=== PATIENT | male | born 1955 | race Caucasian/White ===

== ENCOUNTER 2016-06-23 13:11 | Emergency (ER) | payer OTHER ==
[2016-06-23 13:16] VITALS: BP 126/76; PULSE 89; RESP 18; TEMP 98.4
--- NOTE | 2016-06-23 13:28 | ED ---
General Adult HPI - General Chief complaint: Dental/Oral Stated complaint: Dental Pain Time Seen by Provider: 06/23/16 13:17 Source: patient, RN notes reviewed Mode of arrival: ambulatory Limitations: no limitations - History of Present Illness Initial comments: Patient 61-year-old male who presents emergency room today with a chief complaint of increased dental pain. Patient does admit to pain and tenderness over the left lower jawline along with the right upper over the last day. Patient denies any other complaints associated symptoms. Denies any drainage or discharge. Does admit to depression tooth of tooth #19. Patient denies any recent fever, chills, shortness of breath, chest pain, back pain, abdominal pain , nausea or vomiting, numbness or tingling, dysuria or hematuria, constipation or diarrhea, headaches or visual changes, or any other complaints. - Related Data Home Medications Medication Instructions Recorded Confirmed Lisinopril [Prinivil] 20 mg PO DAILY 06/23/16 06/23/16 Previous Rx's Medication Instructions Recorded Hydrocodone/Acetaminophen [[place] 1 each PO Q6HR PRN #15 tab 06/23/16 5-325] Ibuprofen [Motrin] 600 mg PO Q6HR PRN #40 day 06/23/16 Penicillin V Potassium [Pen Vee K] 500 mg PO QID 10 Days 06/23/16 Allergies Allergy/AdvReac Type Severity Reaction Status Date / Time No Known Allergies Allergy Verified 06/23/16 13:15 Review of Systems ROS Statement: Those systems with pertinent positive or pertinent negative responses have been documented in the HPI. ROS Other: All systems not noted in ROS Statement are negative. Past Medical History Past Medical History: Hypertension History of Any Multi-Drug Resistant Organisms: None Reported Past Surgical History: Cholecystectomy Additional Past Surgical History / Comment(s): hernia repair, umbilical and inguinal Past Psychological History: No Psychological Hx Reported Smoking Status: Current every day smoker Past Alcohol Use History: None Reported Past Drug Use History: None Reported General Exam - General Exam Comments Initial Comments: General: The patient is awake and alert, in no distress, and does not appear acutely ill. Eye: Pupils are equal, round and reactive to light, extra-ocular movements are intact. No nystagmus. There is normal conjunctiva bilaterally. No signs of icterus. Ears, nose, mouth and throat: There are moist mucous membranes and no oral lesions. TMs clear bilaterally. No missing teeth. Tender in the gumline of tooth #19. There is a old fracture in this area. Neck: The neck is supple, there is no tenderness or JVD. Cardiovascular: There is a regular rate and rhythm. No murmur, rub or gallop is appreciated. Respiratory: Lungs are clear to auscultation, respirations are non-labored, breath sounds are equal. No wheezes, stridor, rales, or rhonchi. Musculoskeletal: Normal ROM, no tenderness. Strength 5/5. Sensation intact. Pulses equal bilaterally 2+. Neurological: A&O x 3. CN II-XII intact, There are no obvious motor or sensory deficits. Coordination appears grossly intact. Speech is normal. Skin: Skin is warm and dry and no rashes or lesions are noted. Psychiatric: Cooperative, appropriate mood & affect, normal judgment. Limitations: no limitations Course Vital Signs 06/23/16 13:13 Temperature 98.4 F Pulse Rate 89 Respiratory 18 Rate Blood Pressure 126/76 O2 Sat by Pulse 98 Oximetry Medical Decision Making - Medical Decision Making She'll be started on antibiotics given short prescription of pain medication for symptoms advised follow-up the oral surgeon. Disposition Clinical Impression: Dental abscess Disposition: HOME SELF-CARE Condition: Good Instructions: Dental Abscess (ED) Additional Instructions: Please follow-up the oral surgeon family doctor as discussed. Please use medications as prescribed. Please be aware that Gul[place] may make you drowsy. Please return to emergency room for any other concerns. Prescriptions: Hydrocodone/Acetaminophen [G[place] 5-325] 1 each PO Q6HR PRN #15 tab PRN Reason: Pain Ibuprofen [Motrin] 600 mg PO Q6HR PRN #40 day PRN Reason: Pain Penicillin V Potassium [Pen Vee K] 500 mg PO QID 10 Days Time of Disposition: 13:27
== END 2016-06-23 13:46 | disposition home or self-care (01) ==
LOC: EC 13:11
DX: K04.7 Periapical abscess without sinus (principal); I10 Essential (primary) hypertension; F17.200 Nicotine dependence, unspecified, uncomplicated; Z79.899 Other long term (current) drug therapy
CPT/HCPCS: 99282

== ENCOUNTER → 2016-07-02 | Outpatient (CLI) | payer OTHER ==
[2016-07-02 11:08] LABS: Anion Gap 7 mmol/L; Blood Urea Nitrogen 11 mg/dL (9-20); Carbon Dioxide 26 mmol/L (22-30); Chloride 107 mmol/L (98-107); Glucose 87 mg/dL (74-99); Non-African American GFR(MDRD) >60 (>60 ml/min/1.73 sqM); Sodium 140 mmol/L (137-145)
[2016-07-02 11:32] LABS: Hemoglobin A1C 5.8 % (4.2-6.1)
== END ==
LOC: LABWHC1 09:00
PROVIDERS: ATTEND Internal Medicine
DX: E87.8 Other disorders of electrolyte and fluid balance, not elsewhere classified (principal); R73.9 Hyperglycemia, unspecified
CPT/HCPCS: 36415; 80048; 83036

== ENCOUNTER 2016-07-23 09:59 | Emergency (ER) | payer OTHER ==
[2016-07-23 10:15] VITALS: RESP 18
--- NOTE | 2016-07-23 10:48 | ED ---
General Adult HPI - General Chief complaint: Extremity Injury, Lower Stated complaint: LEFT FOOT INJURY, RT SIDE PAIN Time Seen by Provider: 07/23/16 10:28 Source: patient, RN notes reviewed Mode of arrival: wheelchair Limitations: physical limitation - History of Present Illness Initial comments: Patient is a 61-year-old male presents to the emergency room for evaluation of left great toe pain. Patient states on Saturday he tripped going down the steps and stubbed his left great toe. Patient states he has been having worsening pain ever since. Patient denies taking anything for pain. Patient denies applying ice over the area. Patient states having 8 out of 10 constant pain especially while walking. Patient denies any other injuries during incident. Patient also states that a few days ago he noticed he's been having worsening right lower quadrant pain. Patient states he had a hernia repair about 6 years ago and it's in the same spot. Patient states she's afraid he ripped the hernia. Patient denies fevers or chills. Patient denies nausea or vomiting. Patient states the pain is worse with movement. Patient denies chest pain or shortness of breath. Patient denies pain or burning during urination, trouble urinating or blood in urine. - Related Data Home Medications Medication Instructions Recorded Confirmed Lisinopril [Prinivil] 20 mg PO DAILY 06/23/16 07/23/16 Previous Rx's Medication Instructions Recorded HYDROcodone/APAP 5-325MG [Ewing 1 tab PO Q6HR PRN #12 tab 07/23/16 5-325] Allergies Allergy/AdvReac Type Severity Reaction Status Date / Time No Known Allergies Allergy Verified 07/23/16 10:27 Review of Systems ROS Statement: Those systems with pertinent positive or pertinent negative responses have been documented in the HPI. ROS Other: All systems not noted in ROS Statement are negative. Past Medical History Past Medical History: Hypertension History of Any Multi-Drug Resistant Organisms: None Reported Past Surgical History: Cholecystectomy Additional Past Surgical History / Comment(s): hernia repair, umbilical and inguinal Past Psychological History: No Psychological Hx Reported Smoking Status: Current every day smoker Past Alcohol Use History: None Reported Past Drug Use History: None Reported General Exam - General Exam Comments Initial Comments: Sitting in exam room in no acute distress. Limitations: physical limitation General appearance: alert, in no apparent distress Head exam: Present: atraumatic, normocephalic, normal inspection Eye exam: Present: normal appearance ENT exam: Present: normal exam Neck exam: Present: normal inspection Respiratory exam: Present: normal lung sounds bilaterally. Absent: respiratory distress Cardiovascular Exam: Present: regular rate, normal rhythm, normal heart sounds GI/Abdominal exam: Present: soft, normal bowel sounds. Absent: distended, tenderness, guarding, rebound, rigid exam: Present: normal inspection, other (No inguinal hernias noted.). Absent : testicular tenderness Left Foot/Toe exam: Present: tenderness (Tenderness on palpating over the proximal phalanx. Erythema and swelling of the great toe). Absent: deformity Neurovascular tendon exam: Present: no vascular compromise. Absent: pulse deficit (2+ dorsal pedal and posterior tibial pulses), abnormal cap refill ( Capillary refill less than 2 seconds) Back exam: Present: normal inspection Neurological exam: Present: alert, oriented X3, CN II-XII intact Psychiatric exam: Present: normal affect, normal mood Skin exam: Present: warm, dry, intact, normal color. Absent: rash Course Vital Signs 07/23/16 07/23/16 07/23/16 10:12 11:21 12:37 Temperature 98.1 F 98.3 F Pulse Rate 56 L 63 65 Respiratory 18 18 18 Rate Blood Pressure 111/73 109/63 110/62 O2 Sat by Pulse 96 95 97 Oximetry Medical Decision Making - Medical Decision Making Patient is a 61-year-old male presents emergency room for evaluation of left foot pain and abdominal pain. Left foot x-ray: Fracture of the proximal phalanx left great toe. Patient placed in a postop shoe and given crutches and advised to follow-up with radiation protection specialist. Regarding patient's abdominal pain. No hernias noted. No masses or contusions noted when patient bears down. No inguinal hernias noted. Advised patient to follow-up with his surgeon or primary care provider for reevaluation. Patient's vitals are stable. Patient is afebrile. Patient denies nausea or vomiting. Patient states he understands everything that was discussed with him. Return parameters discussed. Case discussed with Dr. Lewis - Radiology Data Radiology results: report reviewed, image reviewed Disposition Clinical Impression: Fracture of left great toe Disposition: HOME SELF-CARE Condition: Good Instructions: Foot Fracture in Adults (ED) Additional Instructions: Rest, elevate and ice on and off for 10-15 minutes for the next 24-48 hours. Take improvement as needed for pain. Take Ewing as needed for severe pain. Please follow-up with radiation protection specialist in 24-48 hours. If new symptoms develop or symptoms worsen, please return to the ER. Prescriptions: HYDROcodone/APAP 5-325MG [Ewing 5-325] 1 tab PO Q6HR PRN #12 tab PRN Reason: Pain Referrals: Estevan Marquez MD [STAFF PHYSICIAN] - 1-2 days Time of Disposition: 12:22
--- NOTE | 2016-07-23 11:19 | XR ---
EXAMINATION TYPE: XR foot complete LT DATE OF EXAM: 07/23/2016 11:09 AM CLINICAL HISTORY: pain TECHNIQUE: Frontal, lateral and oblique images of the left foot are obtained. COMPARISON: None. FINDINGS: Minimally displaced fracture involving the proximal phalanx of the left great toe extending from the neck into the shaft. Displacement is approximately 1 mm. No definite intra-articular extens ion appreciated at this time. Mild soft tissue swelling identified. No additional fracture seen. IMPRESSION: Fracture of the proximal phalanx left great toe. ICD 10 closed FRACTURE, INITIAL EVALUATION
[2016-07-23 12:39] VITALS: BP 110/62; PULSE 65; TEMP 98.3
== END 2016-07-23 12:30 | disposition home or self-care (01) ==
LOC: EC 09:59
DX: S92.412A Displaced fracture of proximal phalanx of left great toe, initial encounter for closed fracture (principal); W18.49XA Other slipping, tripping and stumbling without falling, initial encounter; R10.31 Right lower quadrant pain; I10 Essential (primary) hypertension; F17.200 Nicotine dependence, unspecified, uncomplicated; Z79.899 Other long term (current) drug therapy
CPT/HCPCS: 99283

== ENCOUNTER → 2016-07-24 | Outpatient (CLI) | payer OTHER ==
--- NOTE | 2016-07-24 11:58 | CT ---
EXAMINATION TYPE: CT abdomen pelvis w con DATE OF EXAM: 07/24/2016 11:41 AM COMPARISON: NONE HISTORY: Patient having right lower quadrant pain-appendix protocol CT DLP: 2588.4 mGycm, Automated Exposure Control for Dose Reduction was Utilized. CONTRAST: CT scan of the abdomen and pelvis is performed with oral and with IV Contrast, patient injected with 100 mL of Omnipaque 300. FINDINGS: LUNG BASES: Motion artifact degradation is seen. Lung bases are grossly clear. LIVER/GB: Cholecystectomy clips are noted. Liver is diffusely hypodense suggesting fatty infiltration . PANCREAS: No significant abnormality is seen. SPLEEN: No significant abnormality is seen. ADRENALS: No significant abnormality is seen. KIDNEYS: Some prominence of retroperitoneal fat is noted. BOWEL: Oral contrast does not reach colonic level making evaluation suboptimal. There is no suspiciou s small or large bowel dilatation seen. There is 1.8 cm diverticulum along the second portion of duod enum on axial image 35. Appendix is within normal limits from the cecum seen best on coronal image 47 . Some diverticula are seen in the sigmoid colon. There is no CT evidence for acute diverticulitis. PROSTATE/SEMINAL VESICLES: Some central zone calcifications are seen in normal size prostate gland. LYMPH NODES: No greater than 1cm abdominal or pelvic lymph nodes are appreciated. There is prominent but subcentimeter perihepatic and anterior caval lymph node on axial image 28 noted. OSSEOUS STRUCTURES: There is multilevel spurring and disc space narrowing with endplate sclerosis in the lumbar spine. OTHER: There is moderate sized fat-containing right inguinal hernia. There is mild to moderate mixed plaque in the distal abdominal aorta extending into pelvic branch ves sels IMPRESSION: No CT evidence for acute appendicitis. No significant acute finding is seen to account fo r patient's clinical symptoms.
== END | disposition home or self-care (01) ==
LOC: RADCTMAIN 10:19
PROVIDERS: ATTEND Internal Medicine
DX: K35.80 Unspecified acute appendicitis (principal)
CPT/HCPCS: 74177; Q9967

== ENCOUNTER 2017-01-04 15:55 | Emergency (ER) | payer OTHER ==
[2017-01-04] MEDS ORDERED: ONDANSETRON 4 MG/2 ML VIAL IVP STA ×2 (16:08→17:22)
[2017-01-04] MEDS ORDERED: ACETAMINOPHEN IV (For NPO) 1,000 MG in EMPTY BAG 1 BAG IVPB STA (16:08)
[2017-01-04] MEDS ORDERED: RX INFO: IV CONTRAST WAS GIVEN 1 EACH MISC MISCELLANE PRN (16:08)
[2017-01-04] MEDS ORDERED: HYDROmorphone 1 MG/ML 1 ML SYRINGE IVP STA (16:08)
[2017-01-04] MEDS ORDERED: SODIUM CHLORIDE 0.9% 1,000 ML IV STA ×2 (16:08)
--- NOTE | 2017-01-04 16:12 | ED ---
General Adult HPI - General Chief complaint: Abdominal Pain Stated complaint: lower abdominal pain Time Seen by Provider: 01/04/17 16:00 Source: patient, RN notes reviewed Mode of arrival: ambulatory Limitations: no limitations - History of Present Illness Initial comments: Patient 61-year-old male who presents emergency room today with chief complaint of abdominal pain over the last 3 days. He doesn't appear in the lower abdomen. Since he has had 2 previous of hernia repairs. Patient does admit to diarrhea. This feeling nauseated. Currently rates pain 8/10. Denies any other complaints or symptoms. Patient denies any recent fever, chills, shortness of breath, chest pain, back pain, vomiting, numbness or tingling, dysuria or hematuria, constipation, headaches or visual changes, or any other complaints. - Related Data Home Medications Medication Instructions Recorded Confirmed Lisinopril [Prinivil] 20 mg PO DAILY 06/23/16 01/04/17 Albuterol Inhaler [Ventolin Hfa 2 puff INHALATION RT-QID PRN 01/04/17 01/04/17 Inhaler] Albuterol Nebulized [Ventolin 2.5 mg INHALATION RT-QID PRN 01/04/17 01/04/17 Nebulized] Ibuprofen [Motrin] 1,200 mg PO QID PRN 01/04/17 01/04/17 Previous Rx's Medication Instructions Recorded Ciprofloxacin HCl [Cipro] 500 mg PO Q12HR #20 day 01/04/17 Hydrocodone/Acetaminophen [[place] 1 each PO Q6HR PRN #15 tab 01/04/17 5-325] Ondansetron Odt [Zofran ODT] 4 mg PO Q8HR PRN #20 tab 01/04/17 metroNIDAZOLE [Flagyl] 500 mg PO TID 7 Days 01/04/17 Allergies Allergy/AdvReac Type Severity Reaction Status Date / Time No Known Allergies Allergy Verified 01/04/17 16:36 Review of Systems ROS Statement: Those systems with pertinent positive or pertinent negative responses have been documented in the HPI. ROS Other: All systems not noted in ROS Statement are negative. Past Medical History Past Medical History: Hypertension History of Any Multi-Drug Resistant Organisms: None Reported Past Surgical History: Cholecystectomy Additional Past Surgical History / Comment(s): hernia repair, umbilical and inguinal Past Psychological History: No Psychological Hx Reported Smoking Status: Current every day smoker Past Alcohol Use History: None Reported Past Drug Use History: None Reported General Exam - General Exam Comments Initial Comments: General: The patient is awake and alert, in no distress, and does not appear acutely ill. Eye: Pupils are equal, round and reactive to light, extra-ocular movements are intact. No nystagmus. There is normal conjunctiva bilaterally. No signs of icterus. Ears, nose, mouth and throat: There are moist mucous membranes and no oral lesions. Neck: The neck is supple, there is no tenderness or JVD. Cardiovascular: There is a regular rate and rhythm. No murmur, rub or gallop is appreciated. Respiratory: Lungs are clear to auscultation, respirations are non-labored, breath sounds are equal. No wheezes, stridor, rales, or rhonchi. Gastrointestinal: Normal appearance abdomen. Normal bowel sounds. Patient does have tenderness left lower quadrant. No rebound tenderness. Guarding. No CVA tenderness. Musculoskeletal: Normal ROM, no tenderness. Strength 5/5. Sensation intact. Pulses equal bilaterally 2+. Neurological: A&O x 3. CN II-XII intact, There are no obvious motor or sensory deficits. Coordination appears grossly intact. Speech is normal. Skin: Skin is warm and dry and no rashes or lesions are noted. Psychiatric: Cooperative, appropriate mood & affect, normal judgment. Limitations: no limitations Course Vital Signs 01/04/17 01/04/17 15:57 17:24 Temperature 100.9 F H 98.1 F Pulse Rate 100 88 Respiratory 20 18 Rate Blood Pressure 157/104 145/86 O2 Sat by Pulse 99 96 Oximetry Medical Decision Making - Medical Decision Making Patient's CT of the abdomen and pelvis reviewed and does show a fat containing right hernia. No other acute abnormalities appreciated. Patient did have tenderness greatest in left lower quadrant. Patient was complaining about epigastric pain when he got back from CT. At this time is been examined again has no pain. Did not want have GI cocktail. This pain is improved here in the emergency room. His labs been reviewed. Did have low-grade temperature on the 100.9. Case discussed in detail with attending physician Dr. Lewis. patient will be discharged home On Cipro and Flagyl to Cover for a Colitis Versus Diverticulitis. Also. Patient Following up with Family Doctor over the Next 2 Days. Advised Return If Symptoms Increase Worsen or for Any Other Concerns. Patient States Understanding and Is in Agreement.. - Lab Data Result diagrams: 01/04/17 16:15 01/04/17 16:15 Lab Results 01/04/17 01/04/17 01/04/17 Range/Units 16:15 16:15 16:15 WBC 11.4 H (3.8-10.6) k/uL RBC 5.92 H (4.30-5.90) m/uL Hgb 16.9 (13.0-17.5) gm/dL Hct 50.6 (39.0-53.0) % MCV 85.5 (80.0-100.0) fL MCH 28.5 (25.0-35.0) pg MCHC 33.4 (31.0-37.0) g/dL RDW 14.5 (11.5-15.5) % Plt Count 240 (150-450) k/uL Neutrophils % 68 % Lymphocytes % 21 % Monocytes % 6 % Eosinophils % 2 % Basophils % 0 % Neutrophils # 7.7 (1.3-7.7) k/uL Lymphocytes # 2.4 (1.0-4.8) k/uL Monocytes # 0.7 (0-1.0) k/uL Eosinophils # 0.2 (0-0.7) k/uL Basophils # 0.1 (0-0.2) k/uL PT (9.0-12.0) sec INR (<1.2) APTT (22.0-30.0) sec Sodium 136 L (137-145) mmol/L Potassium 4.6 (3.5-5.1) mmol/L Chloride 107 (98-107) mmol/L Carbon Dioxide 20 L (22-30) mmol/L Anion Gap 9 mmol/L BUN 12 (9-20) mg/dL Creatinine 0.80 (0.66-1.25) mg/dL Est GFR (MDRD) Af Amer >60 (>60 ml/min/1.73 sqM) Est GFR (MDRD) Non-Af >60 (>60 ml/min/1.73 sqM) Glucose 104 H (74-99) mg/dL Plasma Lactic Acid Benito 1.0 (0.7-2.0) mmol/L Calcium 9.1 (8.4-10.2) mg/dL Total Bilirubin 0.7 (0.2-1.3) mg/dL AST 19 (17-59) U/L ALT 35 (21-72) U/L Alkaline Phosphatase 73 (38-126) U/L Total Protein 6.9 (6.3-8.2) g/dL Albumin 4.1 (3.5-5.0) g/dL Amylase 44 (30-110) U/L Urine Color Urine Appearance (Clear) Urine pH (5.0-8.0) Ur Specific [place] (1.001-1.035) Urine Protein (Negative) Urine Glucose (UA) (Negative) Urine Ketones (Negative) Urine Blood (Negative) Urine Nitrite (Negative) Urine Bilirubin (Negative) Urine Urobilinogen (<2.0) mg/dL Ur Leukocyte Esterase (Negative) 01/04/17 01/04/17 Range/Units 16:15 17:50 WBC (3.8-10.6) k/uL RBC (4.30-5.90) m/uL Hgb (13.0-17.5) gm/dL Hct (39.0-53.0) % MCV (80.0-100.0) fL MCH (25.0-35.0) pg MCHC (31.0-37.0) g/dL RDW (11.5-15.5) % Plt Count (150-450) k/uL Neutrophils % % Lymphocytes % % Monocytes % % Eosinophils % % Basophils % % Neutrophils # (1.3-7.7) k/uL Lymphocytes # (1.0-4.8) k/uL Monocytes # (0-1.0) k/uL Eosinophils # (0-0.7) k/uL Basophils # (0-0.2) k/uL PT 10.2 (9.0-12.0) sec INR 1.0 (<1.2) APTT 24.1 (22.0-30.0) sec Sodium (137-145) mmol/L Potassium (3.5-5.1) mmol/L Chloride (98-107) mmol/L Carbon Dioxide (22-30) mmol/L Anion Gap mmol/L BUN (9-20) mg/dL Creatinine (0.66-1.25) mg/dL Est GFR (MDRD) Af Amer (>60 ml/min/1.73 sqM) Est GFR (MDRD) Non-Af (>60 ml/min/1.73 sqM) Glucose (74-99) mg/dL Plasma Lactic Acid Benito (0.7-2.0) mmol/L Calcium (8.4-10.2) mg/dL Total Bilirubin (0.2-1.3) mg/dL AST (17-59) U/L ALT (21-72) U/L Alkaline Phosphatase (38-126) U/L Total Protein (6.3-8.2) g/dL Albumin (3.5-5.0) g/dL Amylase (30-110) U/L Urine Color Yellow Urine Appearance Clear (Clear) Urine pH 6.0 (5.0-8.0) Ur Specific [place] >1.050 H (1.001-1.035) Urine Protein Trace H (Negative) Urine Glucose (UA) Negative (Negative) Urine Ketones Negative (Negative) Urine Blood Negative (Negative) Urine Nitrite Negative (Negative) Urine Bilirubin Negative (Negative) Urine Urobilinogen <2.0 (<2.0) mg/dL Ur Leukocyte Esterase Negative (Negative) Disposition Clinical Impression: Abdominal pain Disposition: TRANSFER TO PSYCH HOSP/UNIT Condition: Good Instructions: Abdominal Pain (ED) Additional Instructions: Please use medication as discussed. Please follow-up with family doctor in the next 2 days of symptoms have not improved. Please return to emergency room if the symptoms increase or worsen or for any other concerns. Prescriptions: Ciprofloxacin HCl [Cipro] 500 mg PO Q12HR #20 day Hydrocodone/Acetaminophen [[place] 5-325] 1 each PO Q6HR PRN #15 tab PRN Reason: Pain metroNIDAZOLE [Flagyl] 500 mg PO TID 7 Days Ondansetron Odt [Zofran ODT] 4 mg PO Q8HR PRN #20 tab PRN Reason: Nausea Referrals: Ayan Thoams MD [Primary Care Provider] - 1-2 days Time of Disposition: 18:32
[2017-01-04 16:24] LABS: Basophils # (A) 0.1 k/uL (0-0.2); Basophils % (A) 0 %; CH 29.7; CHCM 34.9; Eosinophils # (A) 0.2 k/uL (0-0.7); Eosinophils % (A) 2 %; HCT 50.6 % (39.0-53.0); HGB 16.9 gm/dL (13.0-17.5); Luc # (Auto) 0.29; Luc % (Auto) 3; Lymphocytes # (A) 2.4 k/uL (1.0-4.8); Lymphocytes % (A) 21 %; MCH 28.5 pg (25.0-35.0); MCHC 33.4 g/dL (31.0-37.0); MCV 85.5 fL (80.0-100.0); Mean Platelet Volume 7.5; Monocytes # (A) 0.7 k/uL (0-1.0); Monocytes % (A) 6 %; Neutrophils # (A) 7.7 k/uL (1.3-7.7); Neutrophils % (A) 68 %; RBC 5.92 m/uL (4.30-5.90); RDW 14.5 % (11.5-15.5); WBC 11.4 k/uL (3.8-10.6); WBC (Perox) 11.12
[2017-01-04 16:34] LABS: ALT 35 U/L (21-72); AST 19 U/L (17-59); Alkaline Phosphatase 73 U/L (38-126); Amylase 44 U/L (30-110); Anion Gap 9 mmol/L; Blood Urea Nitrogen 12 mg/dL (9-20); Calcium 9.1 mg/dL (8.4-10.2); Carbon Dioxide 20 mmol/L (22-30); Chloride 107 mmol/L (98-107); Glucose 104 mg/dL (74-99); Non-African American GFR(MDRD) >60 (>60 ml/min/1.73 sqM); Potassium 4.6 mmol/L (3.5-5.1); Sodium 136 mmol/L (137-145); Total Bilirubin 0.7 mg/dL (0.2-1.3); Total Protein 6.9 g/dL (6.3-8.2)
[2017-01-04 16:38] LABS: Partial Thromboplastin Time 24.1 sec (22.0-30.0); Prothrombin Time 10.2 sec (9.0-12.0)
--- NOTE | 2017-01-04 17:04 | CT ---
EXAMINATION TYPE: CT abdomen pelvis w con DATE OF EXAM: 01/04/2017 COMPARISON: 07/24/2016 HISTORY: Generalized pain with nuasea CT DLP: 1677 mGycm CONTRAST: CT scan of the abdomen and pelvis is performed without Oral Contrast and with IV Contrast, patient in jected with 100 mL of Omnipaque 300. FINDINGS: LUNG BASES-: No visible nodule. No infiltrate. LIVER/GB: Cholecystectomy clips are in place. No space occupying hepatic lesion. Biliary tree is o f normal caliber. PANCREAS: No inflammation. No distinct mass. SPLEEN: No splenic enlargement. No lesion seen. ADRENALS: No nodule. No thickening. KIDNEYS/BLADDER: No hydronephrosis. No nephrolithiasis. Simple cyst upper pole left kidney. Urinar y bladder grossly unremarkable. BOWEL: Normal appendix. Normal bowel caliber. No inflammation. Moderate fecal stasis particularly w ithin the rectosigmoid region. GENITAL ORGANS: No gross abnormality. LYMPH NODES: No greater than 1cm abdominal or pelvic lymph nodes are appreciated. AORTA: No significant abnormality. OSSEOUS STRUCTURES: Degenerative disc disease lower lumbar spine. OTHER: Fat-containing right inguina l hernia. IMPRESSION: 1. No acute intra-abdominal process. Moderate fecal stasis as noted.
[2017-01-04 17:25] VITALS: RESP 18
[2017-01-04] MEDS: MAG HYDROX/AL HYDROX/SIMETH 30 ML, HYOSCYAMINE ELIXIR 10 ML, CIMETIDINE HCL 300 MG, LID... PO STA ×4 (17:34)
[2017-01-04 17:57] LABS: Appearance,Urine Clear (Clear); Bilirubin,Urine Negative (Negative); Glucose,Urine (UA) Negative (Negative); Ketones,Urine Negative (Negative); Leukocyte Esterase,Urine Negative (Negative); Nitrite,Urine Negative (Negative); Protein,Urine Trace (Negative); UA Billing (MACRO vs. MICRO) CHEM; Urobilinogen,Urine <2.0 mg/dL (<2.0)
[2017-01-04 18:23] LABS: Specific Gravity,Urine >1.050 (1.001-1.035)
[2017-01-04 18:47] VITALS: BP 127/75; PULSE 76; TEMP 97.3
== END 2017-01-04 18:47 ==
LOC: EC 15:55
DX: R10.32 Left lower quadrant pain (principal); R19.7 Diarrhea, unspecified; I10 Essential (primary) hypertension; F17.200 Nicotine dependence, unspecified, uncomplicated; Z79.899 Other long term (current) drug therapy; Z90.49 Acquired absence of other specified parts of digestive tract
CPT/HCPCS: 36415; 80053; 82150; 83605; 85025; 85610; 85730; 81003; 87040; 74177; 99284; 96365; 96375 ×2; 96361 ×2; J2405; J1170; Q9967; J0131

== ENCOUNTER 2017-08-31 10:52 | Emergency (ER) | payer OTHER ==
[2017-08-31 11:08] VITALS: RESP 18
[2017-08-31] MEDS ORDERED: SODIUM CHLORIDE 0.9% 500 ML IV STA (11:13)
[2017-08-31] MEDS ORDERED: RX INFO: IV CONTRAST WAS GIVEN 1 EACH MISC MISCELLANE PRN (11:13)
[2017-08-31] MEDS ORDERED: SODIUM CHLORIDE 0.9% 1,000 ML IV STA (11:13)
[2017-08-31 11:48] LABS: Appearance,Urine Clear (Clear); Bilirubin,Urine Negative (Negative); Blood,Urine Negative (Negative); Color,Urine Yellow; Glucose,Urine (UA) Negative (Negative); Ketones,Urine Negative (Negative); Leukocyte Esterase,Urine Negative (Negative); Nitrite,Urine Negative (Negative); Protein,Urine Negative (Negative); Specific Gravity,Urine 1.018 (1.001-1.035); Urobilinogen,Urine <2.0 mg/dL (<2.0)
[2017-08-31 11:55] LABS: Basophils % (A) 0 %; Eosinophils # (A) 0.1 k/uL (0-0.7); Eosinophils % (A) 2 %; HCT 47.1 % (39.0-53.0); HGB 16.7 gm/dL (13.0-17.5); Lymphocytes % (A) 29 %; MCH 29.7 pg (25.0-35.0); MCHC 35.5 g/dL (31.0-37.0); MCV 83.8 fL (80.0-100.0); Mean Platelet Volume 7.5; Monocytes # (A) 0.3 k/uL (0-1.0); Monocytes % (A) 5 %; Neutrophils # (A) 4.4 k/uL (1.3-7.7); Neutrophils % (A) 62 %; Platelet Count 216 k/uL (150-450); RBC 5.62 m/uL (4.30-5.90); RDW 13.5 % (11.5-15.5); WBC 7.1 k/uL (3.8-10.6)
[2017-08-31 11:56] LABS: ALT 22 U/L (21-72); AST 17 U/L (17-59); Alkaline Phosphatase 68 U/L (38-126); Amylase 62 U/L (30-110); Anion Gap 12 mmol/L; Blood Urea Nitrogen 12 mg/dL (9-20); Calcium 8.9 mg/dL (8.4-10.2); Carbon Dioxide 20 mmol/L (22-30); Chloride 108 mmol/L (98-107); Glucose 99 mg/dL (74-99); Lipase 369 U/L (23-300); Potassium 4.4 mmol/L (3.5-5.1); Sodium 140 mmol/L (137-145); Total Bilirubin 0.9 mg/dL (0.2-1.3); Total Protein 6.7 g/dL (6.3-8.2)
--- NOTE | 2017-08-31 12:17 | ED ---
General Adult HPI - General Chief complaint: Abdominal Pain Stated complaint: Lower back pain, abd Pain Time Seen by Provider: 08/31/17 11:12 Source: patient, RN notes reviewed, old records reviewed Mode of arrival: ambulatory Limitations: no limitations - History of Present Illness Initial comments: This is a 62-year-old male the ER for evaluation of bowel pain severe abdominal pain back pain. Epigastric abdominal pain rating around both sides full-size into his back. Patient does have significant history of abdominal surgery gallbladder surgery as well as multiple hernia repairs. Not done in town here. No surgery in town her surgeon,. Patient not requesting pain medication states pain medication is not helping his pain. Mild nausea no vomiting no diarrhea. Symptoms worsening 2 days, much worse today - Related Data Home Medications Medication Instructions Recorded Confirmed Lisinopril [Prinivil] 20 mg PO DAILY 06/23/16 01/04/17 Albuterol Inhaler [Ventolin Hfa 2 puff INHALATION RT-QID PRN 01/04/17 01/04/17 Inhaler] Albuterol Nebulized [Ventolin 2.5 mg INHALATION RT-QID PRN 01/04/17 01/04/17 Nebulized] Ibuprofen [Motrin] 1,200 mg PO QID PRN 01/04/17 01/04/17 Previous Rx's Medication Instructions Recorded Ciprofloxacin HCl [Cipro] 500 mg PO Q12HR #20 day 01/04/17 Hydrocodone/Acetaminophen [[place] 1 each PO Q6HR PRN #15 tab 01/04/17 5-325] Ondansetron Odt [Zofran ODT] 4 mg PO Q8HR PRN #20 tab 01/04/17 metroNIDAZOLE [Flagyl] 500 mg PO TID 7 Days tab 01/04/17 Allergies Allergy/AdvReac Type Severity Reaction Status Date / Time No Known Allergies Allergy Verified 08/31/17 11:08 Review of Systems ROS Statement: Those systems with pertinent positive or pertinent negative responses have been documented in the HPI. ROS Other: All systems not noted in ROS Statement are negative. Past Medical History Past Medical History: Hypertension History of Any Multi-Drug Resistant Organisms: None Reported Past Surgical History: Cholecystectomy Additional Past Surgical History / Comment(s): hernia repair, umbilical and inguinal Past Psychological History: No Psychological Hx Reported Smoking Status: Current every day smoker Past Alcohol Use History: None Reported Past Drug Use History: Marijuana General Exam Limitations: no limitations General appearance: alert, in no apparent distress Head exam: Present: atraumatic, normocephalic, normal inspection Eye exam: Present: normal appearance, PERRL, EOMI. Absent: scleral icterus, conjunctival injection, periorbital swelling ENT exam: Present: normal exam, mucous membranes moist Neck exam: Present: normal inspection. Absent: tenderness, meningismus, lymphadenopathy Respiratory exam: Present: normal lung sounds bilaterally. Absent: respiratory distress, wheezes, rales, rhonchi, stridor Cardiovascular Exam: Present: regular rate, normal rhythm, normal heart sounds. Absent: systolic murmur, diastolic murmur, rubs, gallop, clicks GI/Abdominal exam: Present: soft, normal bowel sounds. Absent: distended, tenderness, guarding, rebound, rigid Extremities exam: Present: normal inspection, full ROM, normal capillary refill. Absent: tenderness, pedal edema, joint swelling, calf tenderness Back exam: Present: normal inspection Neurological exam: Present: alert, oriented X3, CN II-XII intact Psychiatric exam: Present: normal affect, normal mood Skin exam: Present: warm, dry, intact, normal color. Absent: rash Course Vital Signs 08/31/17 11:05 Temperature 98.3 F Pulse Rate 85 Respiratory 18 Rate Blood Pressure 116/81 O2 Sat by Pulse 99 Oximetry - Reevaluation(s) Reevaluation #1: 08/31/17 13:11 Patient is in no acute distress, pain is controlled, tolerating oral intake Medical Decision Making - Medical Decision Making 62 male the ER for evaluation CT positive colitis, encouraged to this increased fluid intake, patient's in no acute distress pain control. Can be discharged home - Lab Data Result diagrams: 08/31/17 11:31 08/31/17 11:31 Lab Results 08/31/17 08/31/17 08/31/17 Range/Units 11:31 11:31 11:31 WBC 7.1 (3.8-10.6) k/uL RBC 5.62 (4.30-5.90) m/uL Hgb 16.7 (13.0-17.5) gm/dL Hct 47.1 (39.0-53.0) % MCV 83.8 (80.0-100.0) fL MCH 29.7 (25.0-35.0) pg MCHC 35.5 (31.0-37.0) g/dL RDW 13.5 (11.5-15.5) % Plt Count 216 (150-450) k/uL Neutrophils % 62 % Lymphocytes % 29 % Monocytes % 5 % Eosinophils % 2 % Basophils % 0 % Neutrophils # 4.4 (1.3-7.7) k/uL Lymphocytes # 2.0 (1.0-4.8) k/uL Monocytes # 0.3 (0-1.0) k/uL Eosinophils # 0.1 (0-0.7) k/uL Basophils # 0.0 (0-0.2) k/uL Sodium 140 (137-145) mmol/L Potassium 4.4 (3.5-5.1) mmol/L Chloride 108 H (98-107) mmol/L Carbon Dioxide 20 L (22-30) mmol/L Anion Gap 12 mmol/L BUN 12 (9-20) mg/dL Creatinine 0.62 L (0.66-1.25) mg/dL Est GFR (CKD-EPI)AfAm >90 (>60 ml/min/1.73 sqM) Est GFR (CKD-EPI)NonAf >90 (>60 ml/min/1.73 sqM) Glucose 99 (74-99) mg/dL Calcium 8.9 (8.4-10.2) mg/dL Total Bilirubin 0.9 (0.2-1.3) mg/dL AST 17 (17-59) U/L ALT 22 (21-72) U/L Alkaline Phosphatase 68 (38-126) U/L Total Protein 6.7 (6.3-8.2) g/dL Albumin 4.0 (3.5-5.0) g/dL Amylase 62 (30-110) U/L Lipase 369 H (23-300) U/L Urine Color Yellow Urine Appearance Clear (Clear) Urine pH 6.0 (5.0-8.0) Ur Specific [place] 1.018 (1.001-1.035) Urine Protein Negative (Negative) Urine Glucose (UA) Negative (Negative) Urine Ketones Negative (Negative) Urine Blood Negative (Negative) Urine Nitrite Negative (Negative) Urine Bilirubin Negative (Negative) Urine Urobilinogen <2.0 (<2.0) mg/dL Ur Leukocyte Esterase Negative (Negative) - Radiology Data Radiology results: report reviewed (CT head and pelvis positive for colitis), image reviewed Disposition Clinical Impression: Abdominal pain, Colitis Disposition: HOME SELF-CARE Condition: Good Instructions: Abdominal Pain (ED), Colitis (ED) Is patient prescribed a controlled substance at d/c from ED?: No Referrals: Ayan Thomas MD [Primary Care Provider] - 1-2 days
--- NOTE | 2017-08-31 12:33 | CT ---
EXAMINATION TYPE: CT abdomen pelvis w con DATE OF EXAM: 08/31/2017 REFERENCE: Previous study dated 01/04/2017. HISTORY: abdominal pain HISTORY: back pain REFERENCE: NONE CT DLP: 1788 mGy Automated exposure control for dose reduction was used. TECHNIQUE: Helical acquisition through the abdomen and pelvis was obtained following the oral ingesti on of without Oral Contrast and following intravenous administration of 100 mL of Isovue 300. The melissa a was reformatted in axial, coronal and sagittal projections. FINDINGS: There is some scarring or atelectasis in the right middle lobe there is no pleural or frank cardial fluid. The heart is not enlarged. Within the abdomen, the gallbladder is been removed. Liver and spleen are normal. Both adrenal glands are normal. Both kidneys demonstrate function and appear morphologically normal. The pancreas is unremarkable. There is no significant retroperitoneal, iliac or inguinal adenopathy. The bladder is unremarkable. There are scattered diverticula within the sigmoid region. I do not see evidence of diverticulitis. There is some thickening of the transverse colon. The appendix is unremarkable. Small bowel loops are normal. There is no free fluid and no free air. There is mild facet arthropathy in the lower lumbar facets. There is hypertrophic spondylosis within the lower dorsal spine. IMPRESSION: 1. THICKENING OF THE PROXIMAL TRANSVERSE COLON. PLEASE CORRELATE FOR COLITIS. 2. MINIMAL, UNCOMPLICATED DIVERTICULOSIS OF THE SIGMOID COLON. 3. MILD DEGENERATIVE CHANGE WITHIN THE SPINE.
[2017-08-31] MEDS ORDERED: PANTOPRAZOLE 40 MG/10 ML VIAL IVP STA (13:11)
[2017-08-31] MEDS ORDERED: KETOROLAC 30 MG/ML 1 ML VIAL IVP STA (13:11)
[2017-08-31] MEDS ORDERED: ONDANSETRON 4 MG/2 ML VIAL IVP STA (13:11)
[2017-08-31 13:43] VITALS: BP 128/66; PULSE 83; TEMP 97.7
== END 2017-08-31 13:44 | disposition home or self-care (01) ==
LOC: EC 10:52
DX: K52.9 Noninfective gastroenteritis and colitis, unspecified (principal); I10 Essential (primary) hypertension; F17.200 Nicotine dependence, unspecified, uncomplicated; Z90.49 Acquired absence of other specified parts of digestive tract; Z79.899 Other long term (current) drug therapy
CPT/HCPCS: 36415; 80053; 82150; 83690; 85025; 81003; 74177; 99284; 96374; 96375 ×2; 96361 ×2; J2405; J1885; C9113; Q9967

== ENCOUNTER → 2017-10-02 | Outpatient (CLI) | payer OTHER ==
--- NOTE | 2017-10-02 13:18 | XR ---
EXAMINATION TYPE: XR chest 2V DATE OF EXAM: 10/02/2017 COMPARISON: December 03, 2014 HISTORY: Shortness of breath TECHNIQUE: Frontal and lateral views of the chest are obtained. FINDINGS: Scattered senescent parenchymal changes noted. Hyperinflation compatible with COPD. No evidence for infiltrate. No evidence for atelectasis. Heart size is stable. Mediastinal structures are stable and grossly unremarkable. No evidence for hilar prominence. Degenerative changes dorsal spine. IMPRESSION: 1. No evidence for acute pulmonary disease.
[2017-10-02 13:31] LABS: Basophils % (A) 0 %; Eosinophils # (A) 0.2 k/uL (0-0.7); Eosinophils % (A) 2 %; HCT 48.8 % (39.0-53.0); HGB 16.1 gm/dL (13.0-17.5); Lymphocytes # (A) 2.7 k/uL (1.0-4.8); Lymphocytes % (A) 26 %; MCH 28.2 pg (25.0-35.0); MCHC 33.1 g/dL (31.0-37.0); MCV 85.2 fL (80.0-100.0); Mean Platelet Volume 6.9; Monocytes # (A) 0.7 k/uL (0-1.0); Monocytes % (A) 7 %; Neutrophils # (A) 6.7 k/uL (1.3-7.7); Neutrophils % (A) 63 %; Platelet Count 280 k/uL (150-450); RBC 5.73 m/uL (4.30-5.90); RDW 14.1 % (11.5-15.5); WBC 10.5 k/uL (3.8-10.6)
== END | disposition home or self-care (01) ==
LOC: LABWHC1 12:51
PROVIDERS: ATTEND Internal Medicine
DX: F17.200 Nicotine dependence, unspecified, uncomplicated (principal); R05 Cough; Z87.09 Personal history of other diseases of the respiratory system
CPT/HCPCS: 36415; 71046; 85025

== ENCOUNTER → 2018-02-05 | Day surgery (SDC) | payer OTHER ==
[2018-01-30 11:40] VITALS: BMI 39.9
[~2018-02-05] MED LIST: BUPIVACAIN-EPI 0.5%-1:200,000 30 ML VIAL SQ ONE; DEXAMETHASONE SOD PHOSPHATE 10 MG/ML 1 ML VIAL IV ONE; GLYCOPYRROLATE 0.2 MG/ML 2 ML VIAL ONE; HEPARIN SODIUM,PORCINE 5,000 UNIT/ML 1 ML VIAL SQ ONE; HYDROcodone/APAP 7.5-325MG 1 EACH TAB PO ONE; HYDROmorphone (PF) 1 MG/ML ONE; LACTATED RINGERS 1,000 ML IV ONE; MIDAZOLAM 2 MG/2 ML VIAL IV ONE; MIDAZOLAM 2 MG/2 ML VIAL ONE; MORPHINE SULFATE 4 MG/ML SYRINGE IV PRN; NEOSTIGMINE 1 MG/ML 10 ML VIAL ONE; ONDANSETRON 4 MG/2 ML VIAL IVP ONE; PHENYLEPHRINE-0.9% NACL SYG 1 MG/10 ML SYRINGE ONE; PROPOFOL 10 MG/ML 20 ML VIAL IV ONE; ROCURONIUM BROMIDE 10 MG/ML 10 ML VIAL IV ONE; ROPIVACAINE 5 MG/ML 30 ML VIAL ONE; SUCCINYLCHOLINE CHLORIDE 100 MG/5 ML SYR IV ONE; fentaNYL (PF) 50 MCG/ML 2 ML AMP IV ONE; fentaNYL (PF) 50 MCG/ML 2 ML AMP ONE
[2018-02-05] MEDS: LACTATED RINGERS 1,000 ML IV SCH ×2 (11:32→11:33)
--- NOTE | 2018-02-05 12:20 | P.GSHP ---
History of Present Illness H&P Date: 02/05/18 Chief Complaint: Right inguinal hernia This is a 62-year-old male who presents today for laparoscopic robotic repair of right inguinal hernia. Past Medical History Past Medical History: Cancer, COPD, GERD/Reflux, Hyperlipidemia, Hypertension, Musculoskeletal Disorder, Osteoarthritis (OA), Pneumonia, Sleep Apnea/CPAP/BIPAP Additional Past Medical History / Comment(s): DIVERTICULITIS. NO CPAP USE. HX SKIN CA EAR. DDD. ABD HERNIAS. HX COLON POLYPS. Pneumonia 3-4X, last 15-16 yrs ago. Current issues with constipation. Current dislocated right shoulder. History of Any Multi-Drug Resistant Organisms: None Reported Past Surgical History: Cholecystectomy, Hernia Repair Additional Past Surgical History / Comment(s): Hernia repair - umbilical and inguinal. TAILBONE REMOVAL. KIDNEY STONES. COLONOSCOPY. Past Anesthesia/Blood Transfusion Reactions: Previous Problems w/ Anesthesia Additional Past Anesthesia/Blood Transfusion Reaction / Comment(s): PROBLEMS WAKING HIM UP X2. Past Psychological History: No Psychological Hx Reported Smoking Status: Current every day smoker Past Alcohol Use History: Rare Additional Past Alcohol Use History / Comment(s): SMOKES 1 PPD, SINCE 1972. Past Drug Use History: Marijuana Additional Drug Use History / Comment(s): Marijuana use "once a week, if that." - Past Family History Mother Sister(s) Family Medical History: Cancer Mother Family Medical History: Cancer, Diabetes Mellitus Father Family Medical History: Myocardial Infarction ([place]) Brother(s) Family Medical History: Myocardial Infarction ([place]) Medications and Allergies Home Medications Medication Instructions Recorded Confirmed Type Lisinopril [Prinivil] 20 mg PO QAM 06/23/16 01/30/18 History Albuterol Inhaler [Ventolin Hfa 2 puff INHALATION RT-QID PRN 01/04/17 01/30/18 History Inhaler] Albuterol Nebulized [Ventolin 2.5 mg INHALATION RT-QID PRN 01/04/17 01/30/18 History Nebulized] Oxycodone 1 tab PO QID PRN 01/30/18 02/05/18 History Stool Softener 1 tab PO BID 01/30/18 02/05/18 History Allergies Allergy/AdvReac Type Severity Reaction Status Date / Time No Known Allergies Allergy Verified 02/05/18 11:04 Surgical - Exam Vital Signs Temp Pulse Resp BP Pulse Ox 97.2 F L 84 18 120/86 93 L 02/05/18 11:30 02/05/18 11:30 02/05/18 11:30 02/05/18 11:30 02/05/18 11:30 - General well developed, no distress - Eyes PERRL - ENT normal pinna - Neck no masses - Respiratory normal expansion - Cardiovascular Rhythm: regular - Abdomen Abdomen: soft, non tender Hernia: inguinal (Reducible right inguinal hernia) Assessment and Plan Assessment: Right inguinal hernia. We'll perform laparoscopic robotic-assisted repair.
--- NOTE | 2018-02-05 14:39 | P.OP ---
Date of Procedure: 02/05/18 Preoperative Diagnosis: Recurrent right inguinal hernia Postoperative Diagnosis: Recurrent right inguinal hernia Procedure(s) Performed: Lap scopic robotic-assisted repair of right inguinal hernia Anesthesia: MADELAINE Surgeon: Robert Clements Estimated Blood Loss (ml): 5 Pathology: none sent Condition: stable Disposition: PACU Description of Procedure: The patient was placed on the operating table in the supine position. The patient received general anesthesia. The patient's abdomen was prepped and draped in usual sterile fashion. The skin was anesthetized 1% local Xylocaine at the incision sites. Using an 11 blade a skin incision was made at the umbilicus. The fascia was grasped with a [place] and then the peritoneal cavity was entered with the Veress needle. Position of the Veress needle was confirmed with a positive drop test. After adequate insufflation a 5 mm trocar was placed into the peritoneal cavity. The Laparoscope was placed the peritoneal cavity. And a robotic 8 mm trocar was placed in the right lateral position and then another 8 mm robotic trochars placed in the left lateral position. The original 5 mm trocar was exchanged for a 12 mm trocar. The patient was placed in reverse Trendelenburg and then the patient was docked to the robot. Next the peritoneum over top of the hernia was incised and then using blunt and sharp dissection and electrocautery the hernia sac was dissected free from the floor of the inguinal canal. The hernia sac was completely reduced into the peritoneal cavity. And then using the Pro motion study engineer mesh the hernia was repaired. The peritoneum was then sutured with 2-0V lock suture. The patient was then undocked the robot. The needle was withdrawn from the peritoneal cavity. The umbilical trocar site was closed with 0 Ethibond suture. The skin was closed interrupted 3-0 Monocryl suture. Dermabond dressing was applied. Patient was sent to recovery in stable condition.
[2018-02-05 14:53] VITALS: TEMP 97.9
[2018-02-05] MEDS: HYDROmorphone 0.5 MG/0.5 ML SYRINGE IVP PRN ×4 (14:55→15:36)
[2018-02-05 16:10] VITALS: RESP 17
[2018-02-05 17:21] VITALS: BP 125/89; PULSE 89
== END | disposition home or self-care (01) ==
LOC: OR 09:50
PROVIDERS: ATTEND Surgery
DX: K40.91 Unilateral inguinal hernia, without obstruction or gangrene, recurrent (principal); J44.9 Chronic obstructive pulmonary disease, unspecified; K21.9 Gastro-esophageal reflux disease without esophagitis; E78.5 Hyperlipidemia, unspecified; I10 Essential (primary) hypertension; M19.90 Unspecified osteoarthritis, unspecified site; F17.210 Nicotine dependence, cigarettes, uncomplicated; Z79.899 Other long term (current) drug therapy; S43.004A Unspecified dislocation of right shoulder joint, initial encounter; G47.33 Obstructive sleep apnea (adult) (pediatric); Z99.89 Dependence on other enabling machines and devices; Z79.891 Long term (current) use of opiate analgesic; Z90.49 Acquired absence of other specified parts of digestive tract; Z85.828 Personal history of other malignant neoplasm of skin; Z82.49 Family history of ischemic heart disease and other diseases of the circulatory system
CPT/HCPCS: 49651; 64486; C1781; J2250; J1644; J1100; J2710; J0690; J2405; J3010; J1170 ×2; J2795; J2370; J0330; J2704

== ENCOUNTER → 2018-07-30 | Outpatient (CLI) | payer OTHER ==
[2018-07-30 11:38] LABS: Basophils # (A) 0.1 k/uL (0-0.2); Basophils % (A) 1 %; Eosinophils # (A) 0.2 k/uL (0-0.7); Eosinophils % (A) 3 %; HCT 51.3 % (39.0-53.0); HGB 16.4 gm/dL (13.0-17.5); Lymphocytes # (A) 2.8 k/uL (1.0-4.8); Lymphocytes % (A) 33 %; MCV 84.3 fL (80.0-100.0); Mean Platelet Volume 7.1; Monocytes # (A) 0.5 k/uL (0-1.0); Monocytes % (A) 6 %; Neutrophils # (A) 4.9 k/uL (1.3-7.7); Neutrophils % (A) 56 %; Platelet Count 264 k/uL (150-450); RBC 6.08 m/uL (4.30-5.90); RDW 14.2 % (11.5-15.5); WBC 8.7 k/uL (3.8-10.6)
[2018-07-30 14:09] LABS: Erythrocyte Sedimentation Rate 6 mm/hr (0-15)
[2018-07-30 18:42] LABS: Albumin 4.4 g/dL (3.80-4.90); Albumin/Globulin Ratio 1.91 (1.60-3.17); Anion Gap 5.9 mmol/L (4.00-12.00); C Reactive Protein 0.8 mg/dL (0.0-0.8); Calcium 9.3 mg/dL (8.7-10.3); Carbon Dioxide 25.1 mmol/L (21.6-31.8); Globulin 2.3 g/dL (1.6-3.3); Magnesium 1.9 mg/dL (1.5-2.4); Potassium 5.1 mmol/L (3.5-5.5); Total Protein 6.7 g/dL (6.2-8.2); Uric Acid 4.5 mg/dL (3.7-8.7)
[2018-07-30 20:24] LABS: Hemoglobin A1C 6.1 % (4.0-6.0)
== END | disposition home or self-care (01) ==
LOC: LABWHC1 10:20
PROVIDERS: ATTEND Internal Medicine
DX: E55.9 Vitamin D deficiency, unspecified (principal); E78.5 Hyperlipidemia, unspecified; N40.0 Benign prostatic hyperplasia without lower urinary tract symptoms; J44.9 Chronic obstructive pulmonary disease, unspecified; E66.9 Obesity, unspecified
CPT/HCPCS: 36415; 80053; 80061; 82306; 82550; 83036; 83735; 84153; 84443; 84550; 85025; 85652; 86140

== ENCOUNTER → 2019-04-04 | Outpatient (CLI) | payer OTHER ==
[2019-04-04 17:04] LABS: Anion Gap 5.4 mmol/L (4.00-12.00); BUN/Creat Ratio 17.5 Ratio (12.00-20.00); Calcium 8.9 mg/dL (8.7-10.3); Carbon Dioxide 26.6 mmol/L (21.6-31.8); Non-African American GFR(CKD) 95.7 (60.0-200.0); Potassium 4.8 mmol/L (3.5-5.5)
[2019-04-04 18:41] LABS: Hemoglobin A1C 6.1 % (4.0-6.0)
--- NOTE | 2019-04-05 00:38 | XR ---
EXAMINATION TYPE: XR ribs RT DATE OF EXAM: 04/04/2019 COMPARISON: NONE HISTORY: Rib pain TECHNIQUE: 4 views FINDINGS: The right lung is clear. There is no pleural effusion or pneumothorax. I see no rib fractur e. There are clips from cholecystectomy. IMPRESSION: Negative right rib exam. No fracture.
--- NOTE | 2019-04-05 00:39 | XR ---
EXAMINATION TYPE: XR chest 2V DATE OF EXAM: 04/04/2019 COMPARISON: 11/19/2011 HISTORY: Chest pain TECHNIQUE: Frontal and lateral views of the chest are obtained. FINDINGS: Heart and mediastinum are normal. Lungs are clear of infiltrate. There is no pleural effus ion or pneumothorax. Thoracic spine is intact. There are no hilar masses. IMPRESSION: No active cardiopulmonary disease. No change.
== END | disposition home or self-care (01) ==
LOC: LABWHC1 09:50
PROVIDERS: ATTEND Internal Medicine
DX: J44.9 Chronic obstructive pulmonary disease, unspecified (principal); R07.81 Pleurodynia; R73.9 Hyperglycemia, unspecified
CPT/HCPCS: 36415; 71046; 80048; 83036

== ENCOUNTER 2019-12-30 14:29 | Emergency (ER) | payer OTHER ==
[2019-12-30 14:50] VITALS: BP 131/84; PULSE 77; RESP 18; TEMP 98.3
--- NOTE | 2019-12-30 15:04 | ED ---
ENT HPI - General Chief complaint: ENT Stated complaint: ENT Time Seen by Provider: 12/30/19 14:46 Source: patient Mode of arrival: ambulatory Limitations: no limitations - History of Present Illness Initial comments: 64-year-old male who denies any compromise or diabetes presenting to the [facility] today for chief complaint of left ear pain he states approximately 2-3 weeks ago he was bit by a bug in his ear or had a bug living in his ear and used many different tools to try to "scrap it out' he states he put salt water in it last night and is now having drainage. HE states the external ear hurt as well as the inside. >Denies fevers, neck stiffness, nausea, vomiting, headaches, denies throat pain or other associated symptoms. Patient appears nontoxic on arrival in no acute distress. - Related Data Home Medications Medication Instructions Recorded Confirmed lisinopriL [Prinivil] 20 mg PO QAM 06/23/16 01/30/18 Albuterol Inhaler (Mhu) [Ventolin 2 puff INHALATION RT-QID PRN 01/04/17 01/30/18 Hfa Inhaler] Albuterol Nebulized [Ventolin 2.5 mg INHALATION RT-QID PRN 01/04/17 01/30/18 Nebulized] Oxycodone 1 tab PO QID PRN 01/30/18 02/05/18 Stool Softener 1 tab PO BID 01/30/18 02/05/18 Previous Rx's Medication Instructions Recorded Docusate [Colace] 100 mg PO BID #20 capsule 02/05/18 HYDROcodone/APAP 7.5-325MG [[place] 1 tab PO Q4H PRN 3 Days #18 tab 02/05/18 7.5-325] Amoxicillin 500 mg PO Q8HR 7 Days #21 ml 12/30/19 Ofloxacin 0.3% Otic Soln [Floxin 5 drops LEFT EAR BID 7 Days #70 ml 12/30/19 0.3% Otic Soln] Allergies Allergy/AdvReac Type Severity Reaction Status Date / Time No Known Allergies Allergy Verified 12/30/19 14:50 Review of Systems ROS Statement: Those systems with pertinent positive or pertinent negative responses have been documented in the HPI. ROS Other: All systems not noted in ROS Statement are negative. Past Medical History Past Medical History: Cancer, COPD, GERD/Reflux, Hyperlipidemia, Hypertension, Musculoskeletal Disorder, Osteoarthritis (OA), Pneumonia, Sleep Apnea/CPAP/BIPAP Additional Past Medical History / Comment(s): DIVERTICULITIS. NO CPAP USE. HX SKIN CA EAR. DDD. ABD HERNIAS. HX COLON POLYPS. Pneumonia 3-4X, last 15-16 yrs ago. Current issues with constipation. Current dislocated right shoulder. History of Any Multi-Drug Resistant Organisms: None Reported Past Surgical History: Cholecystectomy, Hernia Repair Additional Past Surgical History / Comment(s): Hernia repair - umbilical and inguinal. TAILBONE REMOVAL. KIDNEY STONES. COLONOSCOPY. Past Anesthesia/Blood Transfusion Reactions: Previous Problems w/ Anesthesia Additional Past Anesthesia/Blood Transfusion Reaction / Comment(s): PROBLEMS WAKING HIM UP X2. Past Psychological History: No Psychological Hx Reported Past Alcohol Use History: Rare Past Drug Use History: Marijuana - Past Family History Mother Sister(s) Family Medical History: Cancer Mother Family Medical History: Cancer, Diabetes Mellitus Father Family Medical History: Myocardial Infarction ([place]) Brother(s) Family Medical History: Myocardial Infarction ([place]) General Exam - General Exam Comments Initial Comments: General: The patient is awake and alert, in no distress, and does not appear acutely ill. Eye: +3 mm pupils are equal, round and reactive to light, extra-ocular movements are intact. No nystagmus. There is normal conjunctiva bilaterally. No signs of icterus. Ears, nose, mouth and throat: There are moist mucous membranes and no oral lesions. TM erythematous of the left ear, there is some drainage in EAC but no large effusion noted nor TM perforation on exam. There is some swelling redness without localized lesion or foreign body/insects noted of EAC.. EAC is patent, there is pain to pulling of auricle of left ear. exam of eAC and TM of right ear WNL. No pain to palpation of mastoid b/l Neck: The neck is supple, there is no tenderness or JVD. No nuchal rigidity Cardiovascular: There is a regular rate and rhythm. No murmur, rub or gallop is appreciated. Respiratory: Lungs are clear to auscultation, respirations are non-labored, breath sounds are equal. No wheezes, stridor, rales, or rhonchi. Gastrointestinal: Soft, non-distended, non-tender abdomen without masses or organomegaly noted. There is no rebound or guarding present. Musculoskeletal: Normal ROM, no tenderness. Strength 5/5. Sensation intact. Radial pulses equal bilaterally 2+. Neurological: A&O x 3. CN II-XII intact grossly, There are no obvious motor or sensory deficits. Coordination appears grossly intact. Speech is normal. Skin: Skin is warm and dry and no rashes or lesions are noted. Psychiatric: Cooperative, appropriate mood & affect, normal judgment. Limitations: no limitations Course Vital Signs 12/30/19 14:48 Temperature 98.3 F Pulse Rate 77 Respiratory 18 Rate Blood Pressure 131/84 O2 Sat by Pulse 96 Oximetry Medical Decision Making - Medical Decision Making findings on exam consitent with an externa and media. will treat both, no fb/insect identified, i felt i had good views of both the TM and EAC. No mastoid pain. Patient does not appear toxic. EAC patent. Patient will be dsicharged wtih antibiotics orally and the drops. Patient discharged appearing well. Return parameters importance of not touching ear and f/ was discussed with patient who verbalized understanding. Disposition Clinical Impression: Left ear pain, Drainage from left ear Disposition: HOME SELF-CARE Condition: Good Instructions (If sedation given, give patient instructions): Otitis Externa (ED), Ear Infection (ED) Additional Instructions: Please use medication as discussed. Please follow-up with family doctor in the next 24-48 hours for re-evaluation please. Please avoid swimming or getting water into the ear. Placed vasoline covered cotton ball over opening of ear before showers. Please return to emergency room if the symptoms increase or worsen or for any other concerns. Prescriptions: Amoxicillin 500 mg PO Q8HR 7 Days #21 ml Ofloxacin 0.3% Otic Soln [Floxin 0.3% Otic Soln] 5 drops LEFT EAR BID 7 Days #70 ml Is patient prescribed a controlled substance at d/c from ED?: No Referrals: Ayan Thomas MD [Primary Care Provider] - 1-2 days Time of Disposition: 15:04
== END 2019-12-30 15:23 | disposition home or self-care (01) ==
LOC: EC 14:29
DX: H92.12 Otorrhea, left ear (principal); H92.02 Otalgia, left ear; I10 Essential (primary) hypertension; J44.9 Chronic obstructive pulmonary disease, unspecified; G47.30 Sleep apnea, unspecified; K59.00 Constipation, unspecified; Z79.899 Other long term (current) drug therapy; Z85.828 Personal history of other malignant neoplasm of skin; Z99.89 Dependence on other enabling machines and devices
CPT/HCPCS: 99282

== ENCOUNTER → 2020-09-21 | Outpatient (CLI) | payer OTHER ==
--- NOTE | 2020-09-21 09:42 | CT ---
EXAMINATION TYPE: High-resolution CT chest DATE OF EXAM: 09/21/2020 COMPARISON: 12/08/2012. Radiograph 04/04/2019 HISTORY: 63-year-old male Z87.891. Personal history of tobacco use TECHNIQUE: Contiguous high-resolution axial scanning of the chest utilizing 1 mm slice thickness and 1 cm gap. Both supine and prone imaging is performed. CT DLP: 1640.00 mGycm Automated exposure control for dose reduction was used. FINDINGS: Heart normal size without pericardial effusion. Three-vessel coronary artery calcifications are prese nt. Ascending aorta mildly aneurysmal at 4.1 cm. Mild atherosclerotic arch calcifications. Conventional a [facility] vessel branching anatomy. Borderline aneurysmal lower descending thoracic aorta at 3.0 cm. Mild centrilobular emphysema. There is an emphysematous cyst in the left upper lobe measuring 1.8 cm. Questionable slight cyst wall thickening anteriorly and inferiorly, axial image [address] is li mited for assessment of pulmonary nodules. Possible 5 mm pulmonary nodule left upper lobe, axial imag e 7. Tiny calcified granuloma medial right upper lobe. Mild diffuse bronchial wall thickening. No honeycombing, thickening of the bronchovascular bundles, tree-in-bud opacities, dominant groundgla ss densities, or centrilobular nodules identified. AP window lymph node measures up to 8 mm. Suggestion of some calcified right hilar lymph nodes sugges ting prior granulomatous disease. Cholecystectomy clips. Mild to moderate stool burden. Bones: Incidental lipoma of the right lateral chest wall musculature measuring 6.6 x 2.1 cm versus 4. 9 x 1.7 cm in 2013. This can be followed clinically. IMPRESSION: 1. NOTE THAT HIGH-RESOLUTION CT CHEST IS A LIMITED STUDY OPTIMIZED FOR THE CHARACTERIZATION OF INTERS TITIAL LUNG DISEASE. IT HAS A VERY LIMITED ABILITY TO ASSESS FOR PULMONARY NODULES. NO SPECIFIC CT FE ATURES OF INTERSTITIAL LUNG DISEASE. 2. COPD WITH MILD EMPHYSEMA. AN EMPHYSEMATOUS CYST IN THE LEFT UPPER LOBE SHOWS QUESTIONABLE SLIGHT C YST WALL THICKENING ANTERIORLY AND INFERIORLY. ALSO, POSSIBLE 5 MM LEFT UPPER LOBE PULMONARY NODULE. 6 MONTH FOLLOW-UP CONVENTIONAL CT CHEST RECOMMENDED TO REASSESS. 3. INCIDENTAL LIPOMA ALONG THE RIGHT LATERAL CHEST WALL MUSCULATURE MEASURING 6.1 X 2.1 CM (VERSUS 4. 9 X 1.7 CM IN 2013). CORRELATE FOR ANY PALPABLE ABNORMALITY. IF AN ENLARGING PALPABLE FINDING IS DETE CTED, SURGICAL EVALUATION CAN BE CONSIDERED. 4. CAD WITH 3 VESSEL CORONARY ARTERY CALCIFICATIONS.
== END | disposition home or self-care (01) ==
LOC: RADCTMAIN 07:57
PROVIDERS: ATTEND Internal Medicine
DX: J84.9 Interstitial pulmonary disease, unspecified (principal); J43.9 Emphysema, unspecified; R91.8 Other nonspecific abnormal finding of lung field; I25.10 Atherosclerotic heart disease of native coronary artery without angina pectoris; Z87.891 Personal history of nicotine dependence
CPT/HCPCS: 71250

== ENCOUNTER 2021-01-05 13:19 | Observation (INO) | payer OTHER ==
[2021-01-05 13:23] VITALS: TEMP 97.3
[2021-01-05] MEDS ORDERED: NITROGLYCERIN SL TABS 0.4 MG TAB SUBLINGUAL STA ×3 (13:31)
[2021-01-05] MEDS ORDERED: ASPIRIN 81 MG PO STA (13:31)
--- NOTE | 2021-01-05 13:34 | ED ---
General Adult HPI - General Chief complaint: Chest Pain Stated complaint: chest pain Time Seen by Provider: 01/05/21 13:27 Source: patient, RN notes reviewed Mode of arrival: wheelchair Limitations: no limitations - History of Present Illness Initial comments: Patient is a pleasant 65-year-old male presenting to the emergency department chest discomfort. Patient was moving a heavy object prior to onset. Patient has heaviness in his chest, severe and now starting to improve and is between moderate and severe. Discomfort feels like heaviness. Patient did feel a little bit short of breath, nauseated and sweaty. No history of similar symptoms previously. No leg pain or leg swelling. No radiation of discomfort. - Related Data Home Medications Medication Instructions Recorded Confirmed lisinopriL [Prinivil] 20 mg PO QAM 06/23/16 01/30/18 Albuterol Inhaler (Mhu) [Ventolin 2 puff INHALATION RT-QID PRN 01/04/17 01/30/18 Hfa Inhaler] Albuterol Nebulized [Ventolin 2.5 mg INHALATION RT-QID PRN 01/04/17 01/30/18 Nebulized] Oxycodone 1 tab PO QID PRN 01/30/18 02/05/18 Stool Softener 1 tab PO BID 01/30/18 02/05/18 Previous Rx's Medication Instructions Recorded Docusate [Colace] 100 mg PO BID #20 capsule 02/05/18 HYDROcodone/APAP 7.5-325MG [[place] 1 tab PO Q4H PRN 3 Days #18 tab 02/05/18 7.5-325] Amoxicillin 500 mg PO Q8HR 7 Days #21 ml 12/30/19 Ofloxacin 0.3% Otic Soln [Floxin 5 drops LEFT EAR BID 7 Days #70 ml 12/30/19 0.3% Otic Soln] Allergies Allergy/AdvReac Type Severity Reaction Status Date / Time No Known Allergies Allergy Verified 01/05/21 13:22 Review of Systems ROS Statement: Those systems with pertinent positive or pertinent negative responses have been documented in the HPI. ROS Other: All systems not noted in ROS Statement are negative. Constitutional: Denies: fever Eyes: Denies: eye pain ENT: Denies: ear pain Respiratory: Reports: as per HPI. Denies: cough Cardiovascular: Reports: as per HPI, chest pain Endocrine: Denies: fatigue Gastrointestinal: Reports: as per HPI Genitourinary: Denies: dysuria Musculoskeletal: Denies: back pain Skin: Denies: rash Neurological: Denies: weakness Past Medical History Past Medical History: Cancer, COPD, GERD/Reflux, Hyperlipidemia, Hypertension, Musculoskeletal Disorder, Osteoarthritis (OA), Pneumonia, Sleep Apnea/CPAP/BIPAP Additional Past Medical History / Comment(s): DIVERTICULITIS. NO CPAP USE. HX SKIN CA EAR. DDD. ABD HERNIAS. HX COLON POLYPS. Pneumonia 3-4X, last 15-16 yrs ago. Current issues with constipation. Current dislocated right shoulder. History of Any Multi-Drug Resistant Organisms: None Reported Past Surgical History: Cholecystectomy, Hernia Repair Additional Past Surgical History / Comment(s): Hernia repair - umbilical and in guinal. TAILBONE REMOVAL. KIDNEY STONES. COLONOSCOPY. Past Anesthesia/Blood Transfusion Reactions: Previous Problems w/ Anesthesia Additional Past Anesthesia/Blood Transfusion Reaction / Comment(s): PROBLEMS WAKING HIM UP X2. Past Psychological History: No Psychological Hx Reported Smoking Status: Former smoker Past Alcohol Use History: None Reported, Rare Past Drug Use History: Marijuana - Past Family History Mother Sister(s) Family Medical History: Cancer Mother Family Medical History: Cancer, Diabetes Mellitus Father Family Medical History: Myocardial Infarction ([place]) Brother(s) Family Medical History: Myocardial Infarction ([place]) General Exam Limitations: no limitations General appearance: alert, in no apparent distress Head exam: Present: normocephalic Eye exam: Present: normal appearance Neck exam: Present: normal inspection Respiratory exam: Present: normal lung sounds bilaterally. Absent: chest wall tenderness Cardiovascular Exam: Present: regular rate, normal rhythm Expanded Peripheral pulses: 2+: Radial (R), Radial (L), Posterior Tibialis (R), Posterior Tibialis (L), Dorsalis Pedis (R), Dorsalis Pedis (L) GI/Abdominal exam: Present: soft. Absent: tenderness Extremities exam: Present: normal inspection. Absent: pedal edema, calf tenderness Neurological exam: Present: alert Psychiatric exam: Present: normal affect, normal mood Skin exam: Present: normal color Course Vital Signs 01/05/21 01/05/21 13:20 14:18 Temperature 97.3 F L Pulse Rate 88 81 Respiratory 24 18 Rate Blood Pressure 118/88 96/67 O2 Sat by Pulse 95 95 Oximetry - Reevaluation(s) Reevaluation #1: 01/05/21 13:45 Repeat EKG shows sinus rhythm at 80. GA 168. QRS 124. QT 400. QTc 461. Left axis. Right bundle branch block. No acute ST change. EKG Findings - EKG Comments: EKG Findings:: Sinus rhythm with a rate of 84. GA 170. QRS 116. QT 374. QTC 441. Right bundle branch block. No acute ST change. Medical Decision Making - Medical Decision Making Patient reevaluated and symptom-free following a glycerin. Patient updated on results and plan. Case discussed with Dr. Thomas, who will admit his patient. - Lab Data Result diagrams: 01/05/21 13:49 01/05/21 13:49 Lab Results 01/05/21 01/05/21 01/05/21 Range/Units 13:49 13:49 13:49 WBC 11.0 H (3.8-10.6) k/uL RBC 5.95 H (4.30-5.90) m/uL Hgb 17.9 H (13.0-17.5) gm/dL Hct 51.8 (39.0-53.0) % MCV 87.0 (80.0-100.0) fL MCH 30.1 (25.0-35.0) pg MCHC 34.6 (31.0-37.0) g/dL RDW 13.4 (11.5-15.5) % Plt Count 251 (150-450) k/uL MPV 7.7 Neutrophils % 68 % Lymphocytes % 23 % Monocytes % 5 % Eosinophils % 1 % Basophils % 0 % Neutrophils # 7.5 (1.3-7.7) k/uL Lymphocytes # 2.6 (1.0-4.8) k/uL Monocytes # 0.6 (0-1.0) k/uL Eosinophils # 0.1 (0-0.7) k/uL Basophils # 0.0 (0-0.2) k/uL PT 9.8 (9.0-12.0) sec INR 0.9 (<1.2) APTT 23.6 (22.0-30.0) sec D-Dimer 0.46 (<0.60) mg/L FEU Sodium 139 (137-145) mmol/L Potassium 5.1 (3.5-5.1) mmol/L Chloride 107 (98-107) mmol/L Carbon Dioxide 22 (22-30) mmol/L Anion Gap 10 mmol/L BUN 16 (9-20) mg/dL Creatinine 0.71 (0.66-1.25) mg/dL Est GFR (CKD-EPI)AfAm >90 (>60 ml/min/1.73 sqM) Est GFR (CKD-EPI)NonAf >90 (>60 ml/min/1.73 sqM) Glucose 102 H (74-99) mg/dL Calcium 9.6 (8.4-10.2) mg/dL Magnesium 2.0 (1.6-2.3) mg/dL Total Bilirubin 1.0 (0.2-1.3) mg/dL AST 45 (17-59) U/L ALT 25 (4-49) U/L Alkaline Phosphatase 71 (38-126) U/L Troponin I (0.000-0.034) ng/mL Total Protein 7.5 (6.3-8.2) g/dL Albumin 4.2 (3.5-5.0) g/dL Amylase 55 (30-110) U/L Lipase 57 (23-300) U/L 01/05/21 Range/Units 13:49 WBC (3.8-10.6) k/uL RBC (4.30-5.90) m/uL Hgb (13.0-17.5) gm/dL Hct (39.0-53.0) % MCV (80.0-100.0) fL MCH (25.0-35.0) pg MCHC (31.0-37.0) g/dL RDW (11.5-15.5) % Plt Count (150-450) k/uL MPV Neutrophils % % Lymphocytes % % Monocytes % % Eosinophils % % Basophils % % Neutrophils # (1.3-7.7) k/uL Lymphocytes # (1.0-4.8) k/uL Monocytes # (0-1.0) k/uL Eosinophils # (0-0.7) k/uL Basophils # (0-0.2) k/uL PT (9.0-12.0) sec INR (<1.2) APTT (22.0-30.0) sec D-Dimer (<0.60) mg/L FEU Sodium (137-145) mmol/L Potassium (3.5-5.1) mmol/L Chloride (98-107) mmol/L Carbon Dioxide (22-30) mmol/L Anion Gap mmol/L BUN (9-20) mg/dL Creatinine (0.66-1.25) mg/dL Est GFR (CKD-EPI)AfAm (>60 ml/min/1.73 sqM) Est GFR (CKD-EPI)NonAf (>60 ml/min/1.73 sqM) Glucose (74-99) mg/dL Calcium (8.4-10.2) mg/dL Magnesium (1.6-2.3) mg/dL Total Bilirubin (0.2-1.3) mg/dL AST (17-59) U/L ALT (4-49) U/L Alkaline Phosphatase (38-126) U/L Troponin I <0.012 (0.000-0.034) ng/mL Total Protein (6.3-8.2) g/dL Albumin (3.5-5.0) g/dL Amylase (30-110) U/L Lipase (23-300) U/L - Radiology Data Radiology results: image reviewed (Chest x-ray shows slight increased interstitial change, possible bronchitis or chronic asthma.) Disposition Clinical Impression: Chest pain Disposition: ADMITTED IP TO THIS [facility] Is patient prescribed a controlled substance at d/c from ED?: No Referrals: Ayan Thomas MD [Primary Care Provider] - 1-2 days Decision Time: 15:02
[2021-01-05 14:08] LABS: Basophils % (A) 0 %; Eosinophils # (A) 0.1 k/uL (0-0.7); Eosinophils % (A) 1 %; HCT 51.8 % (39.0-53.0); HGB 17.9 gm/dL (13.0-17.5); Lymphocytes # (A) 2.6 k/uL (1.0-4.8); Lymphocytes % (A) 23 %; MCH 30.1 pg (25.0-35.0); MCHC 34.6 g/dL (31.0-37.0); Mean Platelet Volume 7.7; Monocytes # (A) 0.6 k/uL (0-1.0); Monocytes % (A) 5 %; Neutrophils # (A) 7.5 k/uL (1.3-7.7); Neutrophils % (A) 68 %; Platelet Count 251 k/uL (150-450); RBC 5.95 m/uL (4.30-5.90); RDW 13.4 % (11.5-15.5)
--- NOTE | 2021-01-05 14:13 | XR ---
EXAMINATION TYPE: XR chest 2V DATE OF EXAM: 01/05/2021 COMPARISON: 04/04/2019, CT 09/21/2020 HISTORY: 65-year-old male with chest pain TECHNIQUE: PA and lateral views FINDINGS: Heart normal size. Mild elongation/ectasia of the thoracic aorta. Interstitial prominence have increa sed. No consolidation or pleural effusion. IMPRESSION: Slight increase in interstitial change, possible bronchitis or chronic asthma.
[2021-01-05 14:20] VITALS: RESP 18
[2021-01-05 14:27] LABS: ALT 25 U/L (4-49); African American GFR (CKD) >90 (>60 ml/min/1.73 sqM); Amylase 55 U/L (30-110); Anion Gap 10 mmol/L; Blood Urea Nitrogen 16 mg/dL (9-20); Calcium 9.6 mg/dL (8.4-10.2); Carbon Dioxide 22 mmol/L (22-30); Chloride 107 mmol/L (98-107); Glucose 102 mg/dL (74-99); Lipase 57 U/L (23-300); Non-African American GFR(CKD) >90 (>60 ml/min/1.73 sqM); Sodium 139 mmol/L (137-145)
[2021-01-05 14:29] LABS: INR 0.9 (<1.2); Partial Thromboplastin Time 23.6 sec (22.0-30.0); Prothrombin Time 9.8 sec (9.0-12.0)
[2021-01-05 14:35] LABS: AST 45 U/L (17-59); Albumin 4.2 g/dL (3.5-5.0); Alkaline Phosphatase 71 U/L (38-126); Potassium 5.1 mmol/L (3.5-5.1); Total Protein 7.5 g/dL (6.3-8.2)
[2021-01-05] MEDS ORDERED: NITROGLYCERIN SL TABS 0.4 MG TAB SUBLINGUAL PRN (15:02)
[2021-01-05] MEDS ORDERED: lisinopriL 20 MG TAB PO SCH (16:15)
[2021-01-05 17:48] VITALS: BP 139/90; PULSE 67
[2021-01-05] MEDS ORDERED: oxyCODONE-APAP 10-325MG 1 EACH TAB PO SCH (18:00)
[2021-01-05] MEDS ORDERED: NITROGLYCERIN OINT 1 INCH/GM PACKET TOPICAL SCH (18:00)
[2021-01-05] MEDS ORDERED: IPRATROPIUM-ALBUTEROL 3 ML NEB INHALATION SCH (20:00)
[2021-01-06] MEDS ORDERED: ASPIRIN 325 MG TAB PO SCH (09:00)
--- NOTE | 2021-01-12 13:14 | P.DS ---
Providers Date of admission: 01/05/21 15:03 Expected date of discharge: 01/05/21 Attending physician: Ayan Thomas Admission 01/05/2021 discharge 01/05/2021 patient physically in the emergency room under care of the ER physician never seen by myself should be under care of the ER physician as patient never left the ER and he decided to go home. Again this medical advice. Consults: 01/05/21 15:02 Consult Physician Urgent Consulting Provider: Brandon Lockhart Consult Reason/Comments: cp Do you want consulting provider notified?: Yes Primary care physician: Ayan Thomas Plan - Discharge Summary New Discharge Prescriptions: No Action oxyCODONE-APAP 10-325MG [Percocet 10-325 mg] 1 tab PO Q6HR lisinopriL [Zestril] 20 mg PO DAILY Discharge Medication List lisinopriL [Zestril] 20 mg PO DAILY 01/05/21 [History] oxyCODONE-APAP 10-325MG [Percocet 10-325 mg] 1 tab PO Q6HR 01/05/21 [History] Follow up Appointment(s)/Referral(s): Ayan Thomas MD [Primary Care Provider] - 1-2 days Discharge Disposition: Left Against Medical Advice
== END 2021-01-05 21:26 | disposition left against medical advice (07) ==
LOC: EC 13:19 → 1SOBS 15:03 → 6NMEDSUR 16:04
PROVIDERS: ADMIT Internal Medicine; ATTEND Internal Medicine
DX: R07.89 Other chest pain (principal); J44.9 Chronic obstructive pulmonary disease, unspecified; R11.0 Nausea; R61 Generalized hyperhidrosis; I45.10 Unspecified right bundle-branch block; E78.5 Hyperlipidemia, unspecified; I10 Essential (primary) hypertension; G47.30 Sleep apnea, unspecified; K57.90 Diverticulosis of intestine, part unspecified, without perforation or abscess without bleeding; K59.00 Constipation, unspecified; K21.9 Gastro-esophageal reflux disease without esophagitis; M19.90 Unspecified osteoarthritis, unspecified site; Z53.29 Procedure and treatment not carried out because of patient's decision for other reasons; Z79.899 Other long term (current) drug therapy; Z85.828 Personal history of other malignant neoplasm of skin; Z87.01 Personal history of pneumonia (recurrent); Z86.010 Personal history of colon polyps; Z90.49 Acquired absence of other specified parts of digestive tract; Z87.442 Personal history of urinary calculi; Z87.891 Personal history of nicotine dependence; Z83.3 Family history of diabetes mellitus; Z82.49 Family history of ischemic heart disease and other diseases of the circulatory system; Z80.9 Family history of malignant neoplasm, unspecified
CPT/HCPCS: 99285; 36415; 93005; 85379; 80053; 82150; 83690; 83735; 84484; 85025; 85610; 85730; 71046; G0378 ×2

== ENCOUNTER 2021-03-15 10:25 | Day surgery (SDC) | payer OTHER ==
[2021-03-14 12:00] VITALS: BMI 37.6
[~2021-03-15 10:25] MED LIST changes: +ALPRAZolam 0.25 MG TAB PO PRN; +ALPRAZolam 0.5 MG TAB PO PRN; +ASPIRIN 325 MG TAB PO STA; +ATORVASTATIN 80 MG TAB PO STA; -BUPIVACAIN-EPI 0.5%-1:200,000 30 ML VIAL SQ ONE; -DEXAMETHASONE SOD PHOSPHATE 10 MG/ML 1 ML VIAL IV ONE; -GLYCOPYRROLATE 0.2 MG/ML 2 ML VIAL ONE; -HEPARIN SODIUM,PORCINE 5,000 UNIT/ML 1 ML VIAL SQ ONE; -HYDROcodone/APAP 7.5-325MG 1 EACH TAB PO ONE; -HYDROmorphone (PF) 1 MG/ML ONE; -LACTATED RINGERS 1,000 ML IV ONE; -MIDAZOLAM 2 MG/2 ML VIAL IV ONE; -MIDAZOLAM 2 MG/2 ML VIAL ONE; -MORPHINE SULFATE 4 MG/ML SYRINGE IV PRN; -NEOSTIGMINE 1 MG/ML 10 ML VIAL ONE; +NITROGLYCERIN SL TABS 0.4 MG TAB SUBLINGUAL PRN; -ONDANSETRON 4 MG/2 ML VIAL IVP ONE; -PHENYLEPHRINE-0.9% NACL SYG 1 MG/10 ML SYRINGE ONE; -PROPOFOL 10 MG/ML 20 ML VIAL IV ONE; -ROCURONIUM BROMIDE 10 MG/ML 10 ML VIAL IV ONE; -ROPIVACAINE 5 MG/ML 30 ML VIAL ONE; +SODIUM CHLORIDE 0.9% 1,000 ML in EMPTY BAG 1 BAG IV SCH; -SUCCINYLCHOLINE CHLORIDE 100 MG/5 ML SYR IV ONE; -fentaNYL (PF) 50 MCG/ML 2 ML AMP IV ONE; -fentaNYL (PF) 50 MCG/ML 2 ML AMP ONE
[2021-03-15 11:10] LABS: Basophils % (A) 0 %; Eosinophils # (A) 0.2 k/uL (0-0.7); Eosinophils % (A) 2 %; HCT 50.9 % (39.0-53.0); HGB 16.6 gm/dL (13.0-17.5); Lymphocytes # (A) 2.4 k/uL (1.0-4.8); Lymphocytes % (A) 23 %; MCH 28.7 pg (25.0-35.0); MCHC 32.6 g/dL (31.0-37.0); Mean Platelet Volume 7.1; Monocytes # (A) 0.5 k/uL (0-1.0); Monocytes % (A) 5 %; Neutrophils # (A) 7.1 k/uL (1.3-7.7); Neutrophils % (A) 68 %; Platelet Count 242 k/uL (150-450); RBC 5.78 m/uL (4.30-5.90); RDW 13.9 % (11.5-15.5); WBC 10.4 k/uL (3.8-10.6)
[2021-03-15 11:18] VITALS: TEMP 97.5
[2021-03-15 11:27] LABS: African American GFR (CKD) >90 (>60 ml/min/1.73 sqM); Anion Gap 7 mmol/L; Blood Urea Nitrogen 18 mg/dL (9-20); Calcium 9.4 mg/dL (8.4-10.2); Carbon Dioxide 25 mmol/L (22-30); Chloride 106 mmol/L (98-107); Glucose 104 mg/dL (74-99); Non-African American GFR(CKD) >90 (>60 ml/min/1.73 sqM); Potassium 4.4 mmol/L (3.5-5.1); Sodium 138 mmol/L (137-145)
[2021-03-15] MEDS ORDERED: fentaNYL (PF) 50 MCG/ML 2 ML AMP IV ONE (12:40)
[2021-03-15] MEDS ORDERED: LIDOCAINE 1% INJ 10MG/ML (20 ML MDV) SQ ONE (12:44)
[2021-03-15] MEDS ORDERED: VERAPAMIL SYRINGE (5 MG/10 ML) INTRAARTER ONE (12:46)
[2021-03-15] MEDS ORDERED: HEPARIN SODIUM 1,000 UN/ML (10ML VL) IV ONE (12:52)
[2021-03-15] MEDS ORDERED: MIDAZOLAM 2 MG/2 ML VIAL IVP ONE (12:53)
[2021-03-15] MEDS ORDERED: IOPAMIDOL-370 125ML BTL INJ ONE (13:05)
[2021-03-15] MEDS ORDERED: RX INFO: IV CONTRAST WAS GIVEN 1 EACH MISC MISCELLANE PRN (13:15)
[2021-03-15] MEDS ORDERED: SODIUM CHLORIDE 0.9% 1,000 ML IV SCH (13:15)
[2021-03-15] MEDS ORDERED: HYDROcodone/APAP 10-325MG 1 EACH TAB ONE (14:28)
[2021-03-15] MEDS ORDERED: oxyCODONE-APAP 10-325MG 1 EACH TAB PO STA (14:30)
[2021-03-15 16:48] VITALS: PULSE 74
[2021-03-15 16:49] VITALS: BP 125/74; RESP 18
--- NOTE | 2021-03-15 18:24 | CC ---
CARDIAC CATHETERIZATION REPORT Mr. Marinelli is 65-year-old male with a known history of chronic tobacco use, history of hypertension who has been complaining of symptoms of discomfort, underwent a myocardial perfusion imaging that revealed inferolateral wall reversible defect. In view of that, recommendation made regarding cardiac catheterization. The procedure as well as the risks and the complications were discussed with the patient who is in full understanding and agreement. PROCEDURE DESCRIPTION: Patient was brought to lab support service tech in the fasting semi-sedated state after receiving fentanyl and Benadryl and achieving moderate conscious sedated state using Xylocaine anesthesia and Seldinger technique, a 6-[place] sheath was introduced in the right radial artery. Selective right and left coronary angiography performed using 5-[place] 3.5 bend, right and left Lucian catheter. Multiple views of the coronary arteries including hemiaxial views were obtained. The right Lucian was used to cross the aortic valve and left ventricular end-diastolic pressure was calculated. Following that, a 6-[place] FR4 guiding catheter was introduced into the system and after cannulating the right coronary ostium, a Doppler flow wire Omni was introduced and IFR was calculated. Following that, catheter and sheath were removed. Hemostasis was obtained with deployment of a TR band. There was no immediate complications. Patient was returned to his room in stable condition. Of note, the patient received 5000 units of intravenous heparin as well as intra-arterial verapamil. FINDINGS: FLUOROSCOPY: There was calcification involving the left anterior descending artery. LEFT MAIN: This is a large-sized vessel, bifurcating into left circumflex, left anterior descending artery, left main coronary artery has no evidence of high-grade stenosis. LEFT ANTERIOR DESCENDING CORONARY ARTERY: This is a large-sized vessel reaching towards the apex with a wraparound apex segment giving rise to 3 diagonal branches of small to moderate caliber. The left anterior descending artery in mid segment has intimal disease of 20% to 30% without any evidence of high-grade stenosis. LEFT CIRCUMFLEX: This is a nondominant vessel giving rise to a large obtuse marginal branch. The left circumflex in the proximal mid segment has 20% to 30% plaque without any evidence of high-grade stenosis. RIGHT CORONARY ARTERY: This is a large dominant vessel bifurcating into PDA and posterolateral segment and branches. The proximal segment of the RCA has an eccentric 50 to 60% plaque. The rest of the vessel has no high-grade stenosis. LEFT VENTRICULOGRAM: Left ventriculogram was not performed. HEMODYNAMICS: There was no gradient across the aortic valve. The left ventricular end-diastolic pressure was 16-20 mmHg. IFR measurement was 0.94. IMPRESSION: 1. Calcified left anterior descending coronary artery. 2. Moderate obstructive disease in the proximal RCA with normal IFR and non hemodynamically significant lesion. 3. Mild disease in the LAD and the left circumflex. RECOMMENDATIONS: In view of findings and anatomy, I recommend continue medical therapy with aggressive coronary risk factor modifications that have been initiated including smoking cessation. The importance of risk modification were discussed with the patient and his family, and they are in full understanding and agreement. Duration of sedation is 23 minutes. MMODL / IJN: [id number] /
[2021-03-15] MEDS ORDERED: [UNRECOGNIZED DRUG - REMARK] PO SCH (21:00)
[2021-03-16] MEDS ORDERED: lisinopriL 20 MG TAB PO SCH (09:00)
[2021-03-16] MEDS ORDERED: ASPIRIN 81 MG PO SCH (09:00)
[2021-03-16] MEDS ORDERED: MULTIVITAMINS, THERA 1 EACH TAB PO SCH (09:00)
== END 2021-03-15 15:50 | disposition home or self-care (01) ==
LOC: CATHCVL 10:25
PROVIDERS: ATTEND Internal Medicine Interventional Cardiology
DX: I25.10 Atherosclerotic heart disease of native coronary artery without angina pectoris (principal); I25.84 Coronary atherosclerosis due to calcified coronary lesion; I10 Essential (primary) hypertension; F17.210 Nicotine dependence, cigarettes, uncomplicated; I45.10 Unspecified right bundle-branch block; Z82.49 Family history of ischemic heart disease and other diseases of the circulatory system; Z79.82 Long term (current) use of aspirin; Z79.899 Other long term (current) drug therapy
CPT/HCPCS: 93571; 93458; 80048; 85025; 87635; C1887; C1769; J2250; J2001; J3010; J1644; Q9967

== ENCOUNTER 2023-05-22 10:46 | Emergency (ER) | payer MEDICARE, OTHER ==
[2023-05-22 11:10] VITALS: TEMP 98.2
[2023-05-22] MEDS ORDERED: KETOROLAC 15 MG/ML 1 ML VIAL IVP STA (11:38)
[2023-05-22] MEDS ORDERED: ONDANSETRON 4 MG/2 ML VIAL IVP STA (11:38)
[2023-05-22] MEDS ORDERED: SODIUM CHLORIDE 0.9% 1,000 ML IV STA (11:38)
--- NOTE | 2023-05-22 11:38 | ED ---
Abdominal Pain HPI - General Chief Complaint: Abdominal Pain Stated Complaint: Abd Pain, Lower L Side Time Seen by Provider: 05/22/23 11:22 Source: patient, RN notes reviewed, old records reviewed Mode of arrival: ambulatory Limitations: no limitations - History of Present Illness Initial Comments: This is a 68-year-old male to the ER for evaluation of sudden onset of back pain and left-sided flank pain severe left flank pain with radiation to her groin and lower back. Patient has positive nausea no vomiting no travel history no sick contacts. Patient is without fever. Pain is severe MD Complaint: abdominal pain -: days(s) Location: diffuse, LLQ Radiation: L flank Migration to: epigastric Severity: moderate Severity scale (1-10): 7 Quality: fullness, sharp Consistency: constant Improves With: nothing Worsens With: nothing Associated Symptoms: nausea Treatments Prior to Arrival: other (0) - Related Data Home Medications Medication Instructions Recorded Confirmed lisinopriL [Zestril] 20 mg PO DAILY 01/05/21 05/22/23 oxyCODONE-APAP 10-325MG [Percocet 1 tab PO TID PRN 01/05/21 05/22/23 10-325 mg] Multivitamins, Thera [Multivitamin 1 tab PO DAILY 03/14/21 05/22/23 (formulary)] Gabapentin [Neurontin] 300 mg PO TID 05/22/23 05/22/23 Allergies Allergy/AdvReac Type Severity Reaction Status Date / Time No Known Allergies Allergy Verified 05/22/23 10:53 Review of Systems ROS Statement: Those systems with pertinent positive or pertinent negative responses have been documented in the HPI. ROS Other: All systems not noted in ROS Statement are negative. Past Medical History Past Medical History: Cancer, COPD, GERD/Reflux, Hyperlipidemia, Hypertension, Musculoskeletal Disorder, Osteoarthritis (OA), Pneumonia, Sleep Apnea/CPAP/BIPAP Additional Past Medical History / Comment(s): DIVERTICULITIS. NO CPAP USE. HX SKIN CANCER ON EAR. Hx Kidney Stones. Degenerative Disc Disease. ABD HERNIAS. HX COLON POLYPS. Pneumonia 3-4X, last 15-16 yrs ago. Constipation. History of Any Multi-Drug Resistant Organisms: None Reported Past Surgical History: Cholecystectomy, Hernia Repair Additional Past Surgical History / Comment(s): Hernia repairs - umbilical and inguinal. TAILBONE REMOVED. SURGERY FOR KIDNEY STONES. COLONOSCOPY. Past Anesthesia/Blood Transfusion Reactions: Previous Problems w/ Anesthesia, Motion Sickness Additional Past Anesthesia/Blood Transfusion Reaction / Comment(s): PROBLEMS WAKING HIM UP X2. Past Psychological History: No Psychological Hx Reported Smoking Status: Current every day smoker Past Alcohol Use History: None Reported, Rare Past Drug Use History: Marijuana - Past Family History Mother Sister(s) Family Medical History: Cancer Mother Family Medical History: Cancer, Diabetes Mellitus, Deep Vein Thrombosis (DVT) Father Family Medical History: Myocardial Infarction ([place]) Brother(s) Family Medical History: Myocardial Infarction ([place]) Sister(s) Family Medical History: Cancer General Exam Limitations: no limitations General appearance: alert, in no apparent distress Head exam: Present: atraumatic, normocephalic, normal inspection Eye exam: Present: normal appearance, PERRL, EOMI. Absent: scleral icterus, conjunctival injection, periorbital swelling ENT exam: Present: normal exam, mucous membranes moist Neck exam: Present: normal inspection. Absent: tenderness, meningismus, lymphadenopathy Respiratory exam: Present: normal lung sounds bilaterally. Absent: respiratory distress, wheezes, rales, rhonchi, stridor Cardiovascular Exam: Present: regular rate, normal rhythm, normal heart sounds. Absent: systolic murmur, diastolic murmur, rubs, gallop, clicks GI/Abdominal exam: Present: soft, normal bowel sounds. Absent: distended, tenderness, guarding, rebound, rigid Extremities exam: Present: normal inspection, full ROM, normal capillary refill. Absent: tenderness, pedal edema, joint swelling, calf tenderness Back exam: Present: normal inspection Neurological exam: Present: alert, oriented X3, CN II-XII intact Psychiatric exam: Present: normal affect, normal mood Skin exam: Present: warm, dry, intact, normal color. Absent: rash Course Vital Signs 05/22/23 05/22/23 10:51 13:31 Temperature 98.2 F Pulse Rate 72 87 Respiratory 22 18 Rate Blood Pressure 123/79 118/89 O2 Sat by Pulse 97 98 Oximetry - Reevaluation(s) Reevaluation #1: Medical records reviewed Reevaluation #2: Patient's symptoms improved Reevaluation #3: Patient informed of results questions answered Reevaluation #4: Was pt. sent in by a medical professional or institution (TIFFANIE Ren, PRECISION AGRICULTURE SPECIALIST, urgent care, hospital, or retirement...) When possible be specific @ -no Did you speak to anyone other than the patient for history (EMS, parent, family, police, friend...)? What history was obtained from this source @ -no Did you review nursing and triage notes (agree or disagree)? Why? @ -agree Are old charts reviewed (outside hosp., previous admission, EMS record, old EKG, old radiological studies, urgent care reports/EKG's, retirement records)? Report findings @ -yes Differential Diagnosis (chest pain, altered mental status, abdominal pain women, abdominal pain men, vaginal bleeding, weakness, fever, dyspnea, syncope, headache, dizziness, GI bleed, back pain, seizure, CVA, palpatations, mental health, musculoskeletal)? @ -prior EKG interpreted by me (3pts min.). @ -yes X-rays interpreted by me (1pt min.). @ -no CT interpreted by me (1pt min.). @ -yes positive for kidney stone U/S interpreted by me (1pt. min.). @ -no What testing was considered but not performed or refused? (CT, X-rays, U/S, labs)? Why? @ -none What meds were considered but not given or refused? Why? @ -none Did you discuss the management of the patient with other professionals (professionals i.e. TIFFANIE Ren, PRECISION AGRICULTURE SPECIALIST, lab, RT, psych nurse, healthcare social worker, slabbing machine operator, teacher, delinquency prevention officer, rn case manager)? Give summary @ -no Was smoking cessation discussed for >3mins.? @ -no Were there social determinants of health that impacted care today? How? (Homelessness, low income, unemployed, alcoholism, drug addiction, transportation, low edu. Level, literacy, decrease access to med. care, care home, rehab)? @ -none Was there de-escalation of care discussed even if they declined (Discuss DNR or withdrawal of care, Hospice)? DNR status @ -no What co-morbidities impacted this encounter? (DM, HTN, Smoking, COPD, CAD, Cancer, CVA, ARF, Chemo, Hep., AIDS, mental health diagnosis, sleep apnea, morbid obesity)? @ -none Was patient admitted / discharged? Hospital course, mention meds given and route, prescriptions, significant lab abnormalities, going to OR and other pertinent info. @ - 68 male to ER with sudden onset of severe abdominal pain positive for left UVJ stone. Patient has adequate pain control currently and can be discharged home Discharge Was critical care preformed (if so, how long)? @ -no Undiagnosed new problem with uncertain prognosis? @ -no Drug Therapy requiring intensive monitoring for toxicity (Heparin, Nitro, Insulin, Cardizem)? @ -no Were any procedures done? @ -no Diagnosis/symptom? @ -Left UVJ stone Acute, or Chronic, or Acute on Chronic? @ -Acute Uncomplicated (without systemic symptoms) or Complicated (systemic symptoms)? @ -Complicated Side effects of treatment? @ -no Exacerbation, Progression, or Severe Exacerbation? @ -exacerbation Poses a threat to life or bodily function? How? (Chest pain, [place], [place], pneumonia, PE, COPD, DKA, ARF, appy, cholecystitis, CVA, Diverticulitis, Homicidal, Suicidal, threat to staff... and all critical care pts) @ -no Reevaluation #5: Differential Abdominal Pain Men: Appendicitis, cholecystitis, diverticulosis, ischemic bowel, pancreatitis, hepatitis, UTI, gastroenteritis, AAA, incarcerated hernia, bowel obstruction, constipation, inflammatory bowel, hepatitis, peptic ulcer disease, splenic infarction, perforated viscus, testicular torsion, this is not meant to be an all-inclusive list Medical Decision Making - Medical Decision Making 68 male to ER with sudden onset of severe abdominal pain positive for left UVJ stone. Patient has adequate pain control currently and can be discharged home - Lab Data Result diagrams: 05/22/23 12:05 05/22/23 12:05 Lab Results 05/22/23 05/22/23 Range/Units 12:05 12:05 WBC 15.0 H (3.8-10.6) k/uL RBC 6.28 H (4.30-5.90) m/uL Hgb 17.7 H (13.0-17.5) gm/dL Hct 54.2 H (39.0-53.0) % MCV 86.3 (80.0-100.0) fL MCH 28.2 (25.0-35.0) pg MCHC 32.7 (31.0-37.0) g/dL RDW 13.9 (11.5-15.5) % Plt Count 238 (150-450) k/uL MPV 7.9 Neutrophils % 83 % Lymphocytes % 11 % Monocytes % 4 % Eosinophils % 0 % Basophils % 0 % Neutrophils # 12.6 H (1.3-7.7) k/uL Lymphocytes # 1.6 (1.0-4.8) k/uL Monocytes # 0.7 (0-1.0) k/uL Eosinophils # 0.0 (0-0.7) k/uL Basophils # 0.1 (0-0.2) k/uL Sodium 140 (137-145) mmol/L Potassium 4.4 (3.5-5.1) mmol/L Chloride 109 H (98-107) mmol/L Carbon Dioxide 23 (22-30) mmol/L Anion Gap 8 mmol/L BUN 15 (9-20) mg/dL Creatinine 0.66 (0.66-1.25) mg/dL Est GFR (CKD-EPI)AfAm >90 (>60 ml/min/1.73 sqM) Est GFR (CKD-EPI)NonAf >90 (>60 ml/min/1.73 sqM) Glucose 116 H (74-99) mg/dL Calcium 9.3 (8.4-10.2) mg/dL Total Bilirubin 1.0 (0.2-1.3) mg/dL AST 23 (17-59) U/L ALT 22 (4-49) U/L Alkaline Phosphatase 81 (38-126) U/L Total Protein 7.2 (6.3-8.2) g/dL Albumin 4.0 (3.5-5.0) g/dL Amylase 51 (30-110) U/L Lipase 40 (23-300) U/L - EKG Data -: EKG Interpreted by Me (EKG is sinus 72 [place] 175 QRS 150 QTC 430) - Radiology Data Radiology results: report reviewed (CT abdomen pelvis is positive for left-sided kidney stone), image reviewed Disposition Clinical Impression: Abdominal pain, Left ureteral stone Disposition: HOME SELF-CARE Condition: Good Instructions (If sedation given, give patient instructions): Kidney Stones (ED) Is patient prescribed a controlled substance at d/c from ED?: No Referrals: Ayan Thomas MD [Primary Care Provider] - 1-2 days Time of Disposition: 13:00
[2023-05-22 12:34] LABS: ALT 22 U/L (4-49); AST 23 U/L (17-59); African American GFR (CKD) >90 (>60 ml/min/1.73 sqM); Alkaline Phosphatase 81 U/L (38-126); Amylase 51 U/L (30-110); Anion Gap 8 mmol/L; Blood Urea Nitrogen 15 mg/dL (9-20); Calcium 9.3 mg/dL (8.4-10.2); Carbon Dioxide 23 mmol/L (22-30); Chloride 109 mmol/L (98-107); Glucose 116 mg/dL (74-99); Lipase 40 U/L (23-300); Non-African American GFR(CKD) >90 (>60 ml/min/1.73 sqM); Potassium 4.4 mmol/L (3.5-5.1); Sodium 140 mmol/L (137-145); Total Protein 7.2 g/dL (6.3-8.2)
[2023-05-22 12:35] LABS: Basophils # (A) 0.1 k/uL (0-0.2); Basophils % (A) 0 %; Eosinophils % (A) 0 %; HCT 54.2 % (39.0-53.0); HGB 17.7 gm/dL (13.0-17.5); Lymphocytes # (A) 1.6 k/uL (1.0-4.8); Lymphocytes % (A) 11 %; MCH 28.2 pg (25.0-35.0); MCHC 32.7 g/dL (31.0-37.0); MCV 86.3 fL (80.0-100.0); Mean Platelet Volume 7.9; Monocytes # (A) 0.7 k/uL (0-1.0); Monocytes % (A) 4 %; Neutrophils # (A) 12.6 k/uL (1.3-7.7); Neutrophils % (A) 83 %; Platelet Count 238 k/uL (150-450); RBC 6.28 m/uL (4.30-5.90); RDW 13.9 % (11.5-15.5)
--- NOTE | 2023-05-22 13:02 | CT ---
EXAMINATION TYPE: CT abdomen pelvis wo con DATE OF EXAM: 05/22/2023 COMPARISON: 08/31/2017 INDICATION: Abdominal pain DLP: 1528.9 mGycm, Automated exposure control for dose reduction was used. CONTRAST: 0 mL of Isovue 300. Study performed without Oral Contrast TECHNIQUE: Axial images were obtained from above the diaphragm to the pubic rami in the axial plane a t 5 mm thick sections. Reconstructed images are reviewed on the computer in the coronal plane. FINDINGS: Limited CT sections are obtained the lung bases. The lung bases are clear. CT ABDOMEN: Liver: Normal Spleen: Normal Pancreas: Normal Adrenal glands: The adrenal glands are normal. Gallbladder: Normal Kidneys: No masses are evident. No hydronephrosis is present. There is a 2.4 cm cyst superior pole left kidney. There is a nonobstructing 0.3 cm calcification inferior pole right kidney. There is a n onobstructing proximal left ureteral stone measuring 0.4 cm. Minimal hydronephrosis is present. Some perinephric stranding is present bilaterally. Aorta: Vascular calcification is within the aorta. Minimal prominence of the distal abdominal aorta just above the bifurcation with an AP diameter of 3.0 cm. Inferior vena cava: Normal. CT PELVIS: There is diffuse thickening through the distal sigmoid colon to the rectum. Correlate for colitis. So me adjacent inflammatory changes appears to be present. This study is without oral contrast limiting bowel evaluation. Appendix: Normal as visualized. Urinary bladder: Normal. Genitourinary structures: Prostate contains calcification and is mildly prominent Osseous structures: No suspicious lytic or sclerotic lesions. IMPRESSION: 1. Thickened sigmoid colon and rectum with pericolonic inflammatory changes. Correlate for acute col itis. 2. 0.4 cm obstructing proximal left ureteral stone with minimal left hydronephrosis. 3. Nonobstructing inferior pole right renal stone. 4. Superior left renal cyst.
[2023-05-22] MEDS ORDERED: ONDANSETRON 4 MG ODT STARTER PACK 2 TAB BTL PO STA (13:05)
[2023-05-22] MEDS ORDERED: traMADol 50 MG STARTER PACK 3 TAB BTL PO STA (13:05)
[2023-05-22] MEDS ORDERED: IBUPROFEN 600 MG STARTER PACK 4 TAB BTL PO STA (13:05)
[2023-05-22] MEDS ORDERED: TAMSULOSIN 0.4 MG CAP.ER.24H PO STA (13:05)
[2023-05-22] MEDS ORDERED: MORPHINE SULFATE 4 MG/ML SYRINGE IVP STA (13:05)
[2023-05-22 13:42] VITALS: BP 118/89; PULSE 87; RESP 18
== END 2023-05-22 13:32 | disposition home or self-care (01) ==
LOC: EC 10:46
DX: N13.2 Hydronephrosis with renal and ureteral calculous obstruction (principal); I45.10 Unspecified right bundle-branch block; I10 Essential (primary) hypertension; G47.30 Sleep apnea, unspecified; F17.200 Nicotine dependence, unspecified, uncomplicated; F12.90 Cannabis use, unspecified, uncomplicated; J44.9 Chronic obstructive pulmonary disease, unspecified; Z79.899 Other long term (current) drug therapy
CPT/HCPCS: 99285 ×2; 96374 ×2; 96375 ×2; 96361 ×2; 36415; 80053; 82150; 83690; 85025; 74176; J2405; J1885; S0119

== ENCOUNTER → 2023-05-24 | Outpatient (CLI) | payer MEDICARE, OTHER ==
[2023-05-24 11:04] LABS: African American GFR (CKD) >90 (>60 ml/min/1.73 sqM); Blood Urea Nitrogen 14 mg/dL (9-20); Non-African American GFR(CKD) >90 (>60 ml/min/1.73 sqM)
--- NOTE | 2023-05-24 13:01 | CT ---
EXAMINATION TYPE: CT chest w con DATE OF EXAM: 05/24/2023 COMPARISON: 09/21/2020 HISTORY: Previous abn lung altamirano, exposure to asbestos CT DLP: 568.4 mGycm Automated exposure control for dose reduction was used. TECHNIQUE: Multiple axial images are obtained through the thorax following uneventful administration of nonionic IV contrast material. FINDINGS: LUNGS: There are 2 sub-6 mm pulmonary nodules on the right and 1 sub-6 mm pulmonary nodule in the left. Ther e is a stable left upper lobe pulmonary cyst measuring 16 to 17 mm. No new or suspicious mass is seen. There is no abnormal airspace/consolidative density or abnormal interstitial density. There is no pleural effusion, pleural thickening or pneumothorax. There are no calcified pleural plaq ues. There is mild aneurysmal dilatation of ascending thoracic aorta which is 4 cm in greatest dimension. There is no mediastinal, hilar or axillary adenopathy. Limited scanning through the upper abdomen reveals no gross abnormality. No focal osseous lesions are seen. IMPRESSION: 1. Stable sub-6 mm bilateral pulmonary nodules and stable left upper lobe lung cyst. Continue routine screening yearly interval in this high-risk patient with asbestos exposure. 2. No acute cardiopulmonary disease. 3. Stable 4 cm ascending thoracic aortic aneurysm. 4. No osseous lesions.
== END | disposition home or self-care (01) ==
LOC: RADCTMAIN 10:05
PROVIDERS: ATTEND Internal Medicine
DX: I71.21 Aneurysm of the ascending aorta, without rupture (principal); J98.4 Other disorders of lung; R91.8 Other nonspecific abnormal finding of lung field
CPT/HCPCS: 82565; 84520; 71260; 36415; Q9967

== ENCOUNTER → 2023-05-24 | Outpatient (CLI) | payer MEDICARE, OTHER | END | disposition home or self-care (01) | LOC: LABWHC1 11:19 | PROVIDERS: ATTEND Internal Medicine | DX: Z53.9 Procedure and treatment not carried out, unspecified reason (principal) ==

== ENCOUNTER → 2023-05-27 | Outpatient (CLI) | payer MEDICARE, OTHER ==
[2023-05-27 18:46] LABS: Appearance,Urine Clear (Clear); Bilirubin,Urine Negative (Negative); Blood,Urine Negative (Negative); Color,Urine Yellow (Yellow); Ketones,Urine Negative (Negative); Nitrite,Urine Negative (Negative); Specific Gravity,Urine 1.019 (1.001-1.030)
[2023-05-27 18:50] LABS: Basophils # (A) 0.05 X 10*3/uL (0.00-0.10); Basophils % (A) 0.6 %; Eosinophils # (A) 0.33 X 10*3/uL (0.04-0.35); Eosinophils % (A) 3.6 %; HCT 51.7 % (39.6-50.0); HGB 16.5 g/dL (13.0-17.0); Lymphocytes # (A) 2.38 X 10*3/uL (0.90-5.00); Lymphocytes % (A) 26.3 %; MCH 27.1 pg (27.0-32.0); MCHC 31.9 g/dL (32.0-37.0); Mean Platelet Volume 10.7 FL (9.5-12.2); Monocytes # (A) 0.67 X 10*3/uL (0.20-1.00); Monocytes % (A) 7.4 %; NRBC Per 100 WBC 0 X 10*3/uL (0.00-0.01); Neutrophils # (A) 5.61 X 10*3/uL (1.80-7.70); Neutrophils % (A) 61.9 %; Platelet Count 274 X 10*3/uL (140-440); RBC 6.08 X 10*6/uL (4.40-5.60); RDW 14.5 % (11.5-14.5); WBC 9.06 X 10*3/uL (4.50-10.00)
[2023-05-27 19:12] LABS: % Iron Saturation 19.28 (15.00-50.00); ALT 26 U/L (10-49); AST 21 U/L (14-35); Alkaline Phosphatase 77 U/L (41-126); BUN/Creat Ratio 15.38 Ratio (12.00-20.00); Blood Urea Nitrogen 12.3 mg/dL (9.0-27.0); Calcium 9.1 mg/dL (8.7-10.3); Carbon Dioxide 23.8 mmol/L (21.6-31.8); Chloride 105 mmol/L (96-109); Chol/HDL Ratio 4.97 Ratio; Creatine Kinase 64 U/L (35-257); Globulin 2.5 g/dL (1.6-3.3); Glucose 97 mg/dL (70-110); Iron 75 UG/DL (65-175); LDL Cholesterol,Calculated 125.2 mg/dL (0.0-131.0); Phosphorus 3.9 mg/dL (2.4-5.1); Potassium 4.7 mmol/L (3.5-5.5); Prostate Specific Antigen 0.65 ng/mL (0.000-4.500); Sodium 141 mmol/L (135-145); Total Bilirubin 0.8 mg/dL (0.3-1.2); Total Iron Binding Capacity 389 UG/DL (228-460); Total Protein 6.5 g/dL (6.2-8.2); Uric Acid 4.9 mg/dL (3.7-8.7); VLDL Calculation 16.98 mg/dL (5.00-40.00)
[2023-05-27 19:32] LABS: Erythrocyte Sedimentation Rate 21 mm/Hr (0-20)
== END | disposition home or self-care (01) ==
LOC: LABWHC1 10:13
PROVIDERS: ATTEND Internal Medicine
DX: Z00.00 Encounter for general adult medical examination without abnormal findings (principal); I10 Essential (primary) hypertension; E87.8 Other disorders of electrolyte and fluid balance, not elsewhere classified; D64.9 Anemia, unspecified; M10.9 Gout, unspecified; E78.5 Hyperlipidemia, unspecified; E11.65 Type 2 diabetes mellitus with hyperglycemia; E55.9 Vitamin D deficiency, unspecified; M81.0 Age-related osteoporosis without current pathological fracture
CPT/HCPCS: 36415; 80053; 80061; 81003; 82306; 82550; 82728; 83036; 83540; 83550; 83735; 84100; 84153; 84443; 84550; 85025; 85652; 86140

== ENCOUNTER → 2024-03-13 | Outpatient (CLI) | payer MEDICARE, OTHER ==
--- NOTE | 2024-03-13 09:03 | XR ---
EXAMINATION TYPE: XR lumbosacral spine min 4V DATE OF EXAM: 03/13/2024 8:57 AM COMPARISON: None. CLINICAL INDICATION: Male, 68 years old with history of BACK PAIN, HX FRACTURE, TECHNIQUE: 5 view(s) obtained. FINDINGS: There 5 lumbar-type vertebral bodies. Pedicles are intact. Disc heights are narrowed at L3-4 L4-5 wit h milder narrowing present in the remaining lumbar spine. Spondylosis present. Facet degenerative zuhair nges are present L5-S1. Spondylolytic defects present IMPRESSION: 1. Degenerative disc changes. 2. Facet degenerative changes lower lumbar spine [facility], , 03/13/2024 9:01 AM
[2024-03-13 12:08] LABS: Creatinine,Urine Random 252.6 mg/dL; Protein/Creatinine Ratio,Urine 0.091
[2024-03-13 15:11] LABS: Basophils # (A) 0.07 X 10*3/uL (0.00-0.10); Basophils % (A) 0.7 %; Eosinophils % (A) 2.9 %; HCT 51.9 % (39.6-50.0); HGB 16.7 g/dL (13.0-17.0); Lymphocytes # (A) 2.62 X 10*3/uL (0.90-5.00); Lymphocytes % (A) 25.2 %; MCH 27.6 pg (27.0-32.0); MCHC 32.2 g/dL (32.0-37.0); MCV 85.9 FL (80.0-97.0); Mean Platelet Volume 10.5 FL (9.5-12.2); Monocytes # (A) 0.82 X 10*3/uL (0.20-1.00); Monocytes % (A) 7.9 %; NRBC Per 100 WBC 0 X 10*3/uL (0.00-0.01); Neutrophils # (A) 6.57 X 10*3/uL (1.80-7.70); Platelet Count 273 X 10*3/uL (140-440); RBC 6.04 X 10*6/uL (4.40-5.60); RDW 14.3 % (11.5-14.5); WBC 10.41 X 10*3/uL (4.50-10.00)
[2024-03-13 15:55] LABS: Erythrocyte Sedimentation Rate 21 mm/Hr (0-20)
[2024-03-13 16:08] LABS: ALT 12 U/L (10-49); AST 16 U/L (14-35); Albumin 4.1 g/dL (3.8-4.9); Albumin/Globulin Ratio 1.78 Ratio (1.60-3.17); Alkaline Phosphatase 78 U/L (41-126); BUN/Creat Ratio 14.75 Ratio (12.00-20.00); Blood Urea Nitrogen 11.8 mg/dL (9.0-27.0); C Reactive Protein <0.30 mg/dL (0.00-0.80); Calcium 9.2 mg/dL (8.7-10.3); Carbon Dioxide 21.7 mmol/L (21.6-31.8); Chloride 108 mmol/L (96-109); Chol/HDL Ratio 4.23 Ratio; Globulin 2.3 g/dL (1.6-3.3); Glucose 120 mg/dL (70-110); LDL Cholesterol,Calculated 124.4 mg/dL (0.0-131.0); Magnesium 1.9 mg/dL (1.5-2.4); Phosphorus 3.4 mg/dL (2.4-5.1); Potassium 4.3 mmol/L (3.5-5.5); Sodium 141 mmol/L (135-145); Total Bilirubin 0.4 mg/dL (0.3-1.2); Total Protein 6.4 g/dL (6.2-8.2)
== END | disposition home or self-care (01) ==
LOC: LABWHC1 07:48
PROVIDERS: ATTEND Internal Medicine Sleep Medicine
DX: Z00.00 Encounter for general adult medical examination without abnormal findings (principal); M47.816 Spondylosis without myelopathy or radiculopathy, lumbar region; I10 Essential (primary) hypertension; D58.2 Other hemoglobinopathies; D72.829 Elevated white blood cell count, unspecified; E87.8 Other disorders of electrolyte and fluid balance, not elsewhere classified; E78.5 Hyperlipidemia, unspecified; R80.9 Proteinuria, unspecified
CPT/HCPCS: 36415; 72110; 80053; 80061; 82043; 82306; 82570; 83036; 83735; 84100; 84156; 84443; 85025; 85652; 86140; 86618

== ENCOUNTER → 2024-03-20 | Outpatient (CLI) | payer MEDICARE, OTHER ==
--- NOTE | 2024-03-20 12:32 | XR ---
EXAMINATION TYPE: XR chest 2V DATE OF EXAM: 03/20/2024 CLINICAL HISTORY: J44.9 PULMONARY DISEASE TECHNIQUE: Frontal and lateral views of the chest are obtained. COMPARISON: 01/05/2021 FINDINGS: Inflation compatible with COPD. There is no focal air space opacity, pleural effusion, or p neumothorax seen. The cardiac silhouette size is within normal limits. The osseous structures are intact. IMPRESSION: No acute cardiopulmonary process. [facility], , 03/20/2024 12:30 PM
== END | disposition home or self-care (01) ==
LOC: RADXRMAIN 12:09
PROVIDERS: ATTEND Internal Medicine Sleep Medicine
DX: J44.9 Chronic obstructive pulmonary disease, unspecified (principal)
CPT/HCPCS: 71046

== ENCOUNTER → 2024-04-09 | Outpatient (CLI) | payer MEDICARE, OTHER ==
--- NOTE | 2024-04-09 08:27 | CT ---
EXAMINATION TYPE: CT chest wo con DATE OF EXAM: 04/09/2024 7:16 AM COMPARISON: The 2023. CLINICAL INDICATION: Male, 69 years old with history of R91.1 SOLITARY PUL MONARY NODULE; PHH, lung nodule TECHNIQUE: Multiple axial images were obtained through the chest. Sagittal and coronal reformats were created for review. MIP was performed on a separate workstation. Contrast used: mL of (None if empty) Oral contrast used: (None if empty) CT DLP: 600.9 mGycm, Automated exposure control for dose reduction was used. FINDINGS: LUNGS/ PLEURA: Stable left upper lung cyst. Adjacent lung nodule 2 cm cyst measuring 4 mm on prior is no longer visualized. Stable right upper lung pulmonary nodule. PA vessel on prior. No focal consoli dation, pneumothorax or pleural effusion. AIRWAY: Patent and unremarkable. HEART: Size within normal limits.Atherosclerosis of the arterial vasculature. MEDIASTINUM: No gross evidence of adenopathy. VASCULATURE: No aortic aneurysm. MUSCULOSKELETAL: No acute osseous abnormalities SOFT TISSUES/LYMPH NODES: Unremarkable. LOWER NECK: No significant findings. UPPER ABDOMEN: Gallbladder surgically absent. IMPRESSION: 1. No suspicious or new or enlarging pulmonary nodules. 2. No acute process. 3. Moderate to severe coronary artery atherosclerosis. [facility], , 04/09/2024 8:25 AM
== END | disposition home or self-care (01) ==
LOC: RADCTMAIN 06:51
PROVIDERS: ATTEND Internal Medicine Sleep Medicine
DX: I25.10 Atherosclerotic heart disease of native coronary artery without angina pectoris (principal); R91.1 Solitary pulmonary nodule
CPT/HCPCS: 71250

== ENCOUNTER 2024-07-15 18:57 | Emergency (ER) | payer MEDICARE, OTHER ==
[2024-07-15 19:11] VITALS: RESP 18
[2024-07-15] MEDS: DIPH,PERTUS(ACELL)TETVAC-LF 0.5 ML VIAL IM ONE (19:34)
[2024-07-15] MEDS: LIDOCAINE 1% INJ 10MG/ML (20 ML MDV) SQ ONE (19:35)
--- NOTE | 2024-07-15 20:11 | ED ---
General Adult HPI - General Chief complaint: Skin/Abscess/Foreign Body Stated complaint: spider bite Time Seen by Provider: 07/15/24 19:16 Source: patient Mode of arrival: ambulatory - History of Present Illness Initial comments: 69-year-old male presenting with chief complaint of possible spider bite to his back. Patient reports for about 3 days he has had redness tenderness and swelling to the back over where he believes a spider bit him. He had his friend look at it and they thought it may be a brown recluse bite so he came to the ER. He reports that he has been fatigued and having chills. No fever that he knows of. No vomiting. No bleeding or discharge from the area. - Related Data Home Medications Medication Instructions Recorded Confirmed lisinopriL [Zestril] 20 mg PO DAILY 01/05/21 05/22/23 oxyCODONE-APAP 10-325MG [Percocet 1 tab PO TID PRN 01/05/21 05/22/23 10-325 mg] Multivitamins, Thera [Multivitamin 1 tab PO DAILY 03/14/21 05/22/23 (formulary)] Gabapentin [Neurontin] 300 mg PO TID 05/22/23 05/22/23 Previous Rx's Medication Instructions Recorded Cephalexin [Keflex] 500 mg PO Q6HR 7 Days #28 cap 07/15/24 Sulfamethox-Tmp 800-160Mg [Bactrim 1 tab PO Q12HR 7 Days #14 tab 07/15/24 DS 800-160 mg] Allergies Allergy/AdvReac Type Severity Reaction Status Date / Time No Known Allergies Allergy Verified 07/15/24 19:11 Review of Systems ROS Statement: Those systems with pertinent positive or pertinent negative responses have been documented in the HPI. ROS Other: All systems not noted in ROS Statement are negative. Past Medical History Past Medical History: Cancer, COPD, GERD/Reflux, Hyperlipidemia, Hypertension, Musculoskeletal Disorder, Osteoarthritis (OA), Pneumonia, Sleep Apnea/CPAP/BIPAP Additional Past Medical History / Comment(s): DIVERTICULITIS. NO CPAP USE. HX SKIN CANCER ON EAR. Hx Kidney Stones. Degenerative Disc Disease. ABD HERNIAS. HX COLON POLYPS. Pneumonia 3-4X, last 15-16 yrs ago. Constipation. History of Any Multi-Drug Resistant Organisms: None Reported Past Surgical History: Cholecystectomy, Hernia Repair Additional Past Surgical History / Comment(s): Hernia repairs - umbilical and inguinal. TAILBONE REMOVED. SURGERY FOR KIDNEY STONES. COLONOSCOPY. Past Anesthesia/Blood Transfusion Reactions: Previous Problems w/ Anesthesia, Motion Sickness Additional Past Anesthesia/Blood Transfusion Reaction / Comment(s): PROBLEMS WAKING HIM UP X2. Past Psychological History: No Psychological Hx Reported Smoking Status: Current every day smoker Past Alcohol Use History: None Reported, Rare Past Drug Use History: Marijuana - Past Family History Mother Sister(s) Family Medical History: Cancer Mother Family Medical History: Cancer, Diabetes Mellitus, Deep Vein Thrombosis (DVT) Father Family Medical History: Myocardial Infarction ([place]) Brother(s) Family Medical History: Myocardial Infarction ([place]) Sister(s) Family Medical History: Cancer General Exam Limitations: no limitations General appearance: alert, in no apparent distress Head exam: Present: atraumatic, normocephalic, normal inspection Eye exam: Present: normal appearance, EOMI Neck exam: Present: normal inspection. Absent: meningismus Respiratory exam: Absent: respiratory distress Cardiovascular Exam: Present: regular rate Neurological exam: Present: alert, oriented X3 Psychiatric exam: Present: normal affect, normal mood Expanded Type of lesion: Present: abscess (2 cm x 4 cm erythematous abscess to the back) Course Vital Signs 07/15/24 19:06 Temperature 97.9 F Pulse Rate 87 Respiratory 18 Rate Blood Pressure 138/75 O2 Sat by Pulse 95 Oximetry Procedures - Incision & Drainage Consent Obtained: verbal consent Site: back Anesthetic Used: lidocaine 1%, without epi Scalpel Used: #11 Ultrasound used: No Needle Aspiration Performed?: No Irrigation Performed?: No I&D Drainage Obtained: Pus, Blood Insertion of drain: No Culture Obtained?: Yes Patient Tolerated Procedure: well, no complications Medical Decision Making - Medical Decision Making Was pt. sent in by a medical professional or institution (, PA, NURSES DIRECTOR, urgent care, hospital, or intermediate...) When possible be specific @ -No Did you speak to anyone other than the patient for history (EMS, parent, family, police, friend...)? What history was obtained from this source @ -No Did you review nursing and triage notes (agree or disagree)? Why? @ -I reviewed and agree with nursing and triage notes Were old charts reviewed (outside hosp., previous admission, EMS record, old EKG, old radiological studies, urgent care reports/EKG's, intermediate records)? Report findings @ -No old charts were reviewed Differential Diagnosis (chest pain, altered mental status, abdominal pain women, abdominal pain men, vaginal bleeding, weakness, fever, dyspnea, syncope, headache, dizziness, GI bleed, back pain, seizure, CVA, palpatations, mental health, musculoskeletal)? @ -Differential includes cellulitis, abscess, allergic reaction, not an all- inclusive list EKG interpreted by me (3pts min.). @ -As above X-rays interpreted by me (1pt min.). @ -None done CT interpreted by me (1pt min.). @ -None done U/S interpreted by me (1pt. min.). @ -None done What testing was considered but not performed or refused? (CT, X-rays, U/S, labs)? Why? @ -None What meds were considered but not given or refused? Why? @ -None Did you discuss the management of the patient with other professionals (professionals i.e. , PA, NURSES DIRECTOR, lab, RT, psych nurse, health social work professor, exhaust and muffler fitter, teacher, health officer, case resource manager)? Give summary @ -No Was smoking cessation discussed for >3mins.? @ -No Was critical care preformed (if so, how long)? @ -No Were there social determinants of health that impacted care today? How? (Homelessness, low income, unemployed, alcoholism, drug addiction, transportation, low edu. Level, literacy, decrease access to med. care, detention, rehab)? @ -No Was there de-escalation of care discussed even if they declined (Discuss DNR or withdrawal of care, Hospice)? DNR status @ -No What co-morbidities impacted this encounter? (DM, HTN, Smoking, COPD, CAD, Cancer, CVA, ARF, Chemo, Hep., AIDS, mental health diagnosis, sleep apnea, morbid obesity)? @ -None Was patient admitted / discharged? Hospital course, mention meds given and route, prescriptions, significant lab abnormalities, going to OR and other pertinent info. @ -69-year-old male presenting with chief complaint of painful red bump to the back that he thinks may be a brown recluse spider bite. On examination there is a 2 cm x 4 cm abscess on his back. There is a centralized indentation which may be due to a spider bite. Incision and drainage was performed and wound culture is obtained. Patient is started on Keflex and Bactrim. Tetanus is updated. Patient is educated on today's findings, treatment plan, and wound care. Educated on signs of worsening infection. Follow-up with PCP. Report back to ER with any new or worsening symptoms. Discussed return parameters and answered all questions. Patient conveyed verbal understanding and agreed to the plan. I discussed this case in detail with my attending Dr. Fuentes Undiagnosed new problem with uncertain prognosis? @ -No Drug Therapy requiring intensive monitoring for toxicity (Heparin, Nitro, Insulin, Cardizem)? @ -No Were any procedures done? @ -Incision and drainage Diagnosis/symptom? @ -Abscess Acute, or Chronic, or Acute on Chronic? @ -Acute Uncomplicated (without systemic symptoms) or Complicated (systemic symptoms)? @ -Uncomplicated Side effects of treatment? @ -No Exacerbation, Progression, or Severe Exacerbation? @ -No Poses a threat to life or bodily function? How? (Chest pain, [place], [place], pneumonia, PE, COPD, DKA, ARF, appy, cholecystitis, CVA, Diverticulitis, Homicidal, Suicidal, threat to staff... and all critical care pts) @ -Potential with any infection, low likelihood at this time Disposition Clinical Impression: Abscess Disposition: HOME SELF-CARE Condition: Good Instructions (If sedation given, give patient instructions): Abscess Incision and Drainage (ED), Abscess (ED) Additional Instructions: Follow-up with PCP. Report back to ER with any new or worsening symptoms. Take medication as prescribed. Hold a warm compress over the area for 10 to 15 minutes 6-8 times a day. Expect to see continued drainage for another 1 to 2 days. Change dressing daily. Wash the area daily with soap and water. If you are experiencing fever, chills, vomiting, worsening pain redness or swelling, this can be a sign of worsening infection and you should be reevaluated. Prescriptions: Sulfamethox-Tmp 800-160Mg [Bactrim DS 800-160 mg] 1 tab PO Q12HR 7 Days #14 tab Cephalexin [Keflex] 500 mg PO Q6HR 7 Days #28 cap Is patient prescribed a controlled substance at d/c from ED?: No Referrals: Ayan Thomas MD [Primary Care Provider] - 1-2 days Time of Disposition: 20:11
[2024-07-15] MEDS: CEPHALEXIN 500 MG CAP PO STA (20:46)
[2024-07-15] MEDS: SULFAMETHOX-TMP 800-160MG 1 EACH TAB PO STA (20:46)
[2024-07-15 20:51] VITALS: BP 130/79; PULSE 74; TEMP 97.7
== END 2024-07-15 20:50 | disposition home or self-care (01) ==
LOC: EC 18:57
DX: L02.212 Cutaneous abscess of back [any part, except buttock and flank] (principal); F17.200 Nicotine dependence, unspecified, uncomplicated; Z23 Encounter for immunization; W57.XXXA Bitten or stung by nonvenomous insect and other nonvenomous arthropods, initial encounter
CPT/HCPCS: 87070; 87205; 90715; 99283; 90471; 10060; J2003; 87077; 87186

== ENCOUNTER → 2024-10-05 | Outpatient (CLI) | payer MEDICARE, OTHER ==
--- NOTE | 2024-10-05 12:48 | XR ---
EXAMINATION TYPE: XR knee 4V LT DATE OF EXAM: 10/05/2024 12:28 PM INDICATION: Patient age:Male; 69 years old; Reason for study: M81.0 OA; PHH. pain COMPARISON: None. TECHNIQUE: The Left knee(s) was examined in Frontal, frontal standing, lateral and oblique projection s. FINDINGS: No evidence of any acute osseous pathology, soft tissue swelling, or joint effusion is no aletha. No significant joint space narrowing or marginal osteophytosis of the knee. Benign-appearing scl erotic lesion within the proximal tibial diaphysis suggesting an enchondroma. IMPRESSION: 1. No acute osseous pathology. 2. No osteoarthritic changes identified. 3. Proximal tibial diaphysis sclerotic lesion suggesting a benign enchondroma. [facility], , 10/05/2024 12:46 PM
[2024-10-05 18:50] LABS: Basophils # (A) 0.06 X 10*3/uL (0.00-0.10); Basophils % (A) 0.6 %; Eosinophils # (A) 0.21 X 10*3/uL (0.04-0.35); Eosinophils % (A) 2.1 %; HCT 51.7 % (39.6-50.0); HGB 16.6 g/dL (13.0-17.0); Lymphocytes # (A) 3.33 X 10*3/uL (0.90-5.00); Lymphocytes % (A) 33.5 %; MCH 28.1 pg (27.0-32.0); MCHC 32.1 g/dL (32.0-37.0); MCV 87.6 FL (80.0-97.0); Mean Platelet Volume 10.4 FL (9.5-12.2); Monocytes % (A) 9.1 %; NRBC Per 100 WBC 0 X 10*3/uL (0.00-0.01); Neutrophils # (A) 5.41 X 10*3/uL (1.80-7.70); Neutrophils % (A) 54.4 %; Platelet Count 289 X 10*3/uL (140-440); RDW 14.3 % (11.5-14.5); WBC 9.94 X 10*3/uL (4.50-10.00)
[2024-10-05 19:17] LABS: Erythrocyte Sedimentation Rate 25 mm/Hr (0-20)
[2024-10-05 20:49] LABS: ALT 23 U/L (10-49); AST 21 U/L (14-35); Albumin 4.1 g/dL (3.8-4.9); Albumin/Globulin Ratio 1.64 Ratio (1.60-3.17); Alkaline Phosphatase 80 U/L (41-126); BUN/Creat Ratio 21.38 Ratio (12.00-20.00); Blood Urea Nitrogen 17.1 mg/dL (9.0-27.0); Calcium 9.2 mg/dL (8.7-10.3); Carbon Dioxide 21.8 mmol/L (21.6-31.8); Chloride 107 mmol/L (96-109); Globulin 2.5 g/dL (1.6-3.3); Glucose 101 mg/dL (70-110); Sodium 140 mmol/L (135-145); Total Bilirubin 0.9 mg/dL (0.3-1.2); Total Protein 6.6 g/dL (6.2-8.2); Uric Acid 5.1 mg/dL (3.7-8.7)
== END | disposition home or self-care (01) ==
LOC: RADXRMAIN 12:04
PROVIDERS: ATTEND Internal Medicine
DX: M89.8X6 Other specified disorders of bone, lower leg (principal); E11.65 Type 2 diabetes mellitus with hyperglycemia; M81.0 Age-related osteoporosis without current pathological fracture
CPT/HCPCS: 80053; 83036; 84550; 85025; 85652; 86140

== ENCOUNTER → 2024-10-08 | Outpatient (CLI) | payer MEDICARE, OTHER ==
[2024-10-08 15:56] LABS: % Iron Saturation 20.97 (15.00-50.00); Chol/HDL Ratio 4.72 Ratio; Creatine Kinase 64 U/L (35-257); Iron 91 UG/DL (65-175); LDL Cholesterol,Calculated 121.6 mg/dL (0.0-131.0); Magnesium 2.2 mg/dL (1.5-2.4); Phosphorus 3.5 mg/dL (2.4-5.1); Prostate Specific Antigen 1.04 ng/mL (0.000-4.500); Total Iron Binding Capacity 434 UG/DL (228-460)
== END | disposition home or self-care (01) ==
LOC: LABWHC1 10:08
PROVIDERS: ATTEND Internal Medicine
DX: I10 Essential (primary) hypertension (principal); E11.9 Type 2 diabetes mellitus without complications; E87.8 Other disorders of electrolyte and fluid balance, not elsewhere classified; E78.5 Hyperlipidemia, unspecified; E66.9 Obesity, unspecified; E55.9 Vitamin D deficiency, unspecified; E11.65 Type 2 diabetes mellitus with hyperglycemia; N40.0 Benign prostatic hyperplasia without lower urinary tract symptoms; M81.0 Age-related osteoporosis without current pathological fracture; D64.9 Anemia, unspecified
CPT/HCPCS: 36415; 80061; 82306; 82550; 82570; 82728; 83540; 83550; 83735; 84100; 84153; 84443